=== PATIENT | female | born 1935 | race Caucasian/White ===

== ENCOUNTER 2023-01-15 11:09 | Inpatient (IN) | payer OTHER ==
[~2023-01-15] VITALS: Ht 154.9 cm; Wt 55.6 kg
[2023-01-15 11:55] LABS: Urine Bacteria FEW /hpf (None Seen); Urine Blood Negative /uL (Negative); Urine Mucus FEW (None Seen); Urine Specific Gravity 1.014 (1.001-1.035); Urine WBC 3 /hpf (0 - 5)
[2023-01-15 12:03] LABS: Basophils # (auto) 0.1 10 ^3/uL (0-0.2); Basophils % (auto) 0.8 % (0.0-2.0); Eosinophils # (auto) 0.2 10 ^3/uL (0-0.8); Eosinophils % (auto) 2.3 % (0.0-7.0); Hematocrit 46.4 % (36.0-46.0); Hemoglobin 15.1 g/dL (12.2-16.2); Lymphocytes # (auto) 2.1 10 ^3/uL (0.4-5.4); Lymphocytes % (auto) 26.6 % (10.0-50.0); Mean Corpuscular Hemoglobin 30.3 pg (28.0-32.0); Mean Corpuscular Hgb Conc. 32.5 g/dL (32.0-36.0); Mean Corpuscular Volume 93.1 fL (80.0-100.0); Monocytes # (auto) 0.8 10 ^3/uL (0-1.3); Monocytes % (auto) 10.6 % (0.0-12.0); Neutrophils # (auto) 4.7 10 ^3/uL (1.6-8.6); Neutrophils % (auto) 59.7 % (37.0-80.0); Nucleated Red Blood Cells % 0.1 %; Red Blood Cells 4.99 10^6/uL (4.0-5.20); Red Cell Distribution Width 15.3 % (11.8-14.3); White Blood Cell 7.8 10^3/uL (4.4-10.8)
[2023-01-15 12:38] LABS: Albumin 3.7 g/dL (3.4-5.0); Potassium 4.6 mmol/L (3.5-5.1)
[2023-01-15 12:41] LABS: BUN/Creatinine Ratio 20.4 (10.0-20.0); Bilirubin, Total 0.7 mg/dL (0.2-1.0); Total Protein 6.5 g/dL (6.4-8.2)
[2023-01-15] MEDS ORDERED: ASPirin 325 MG TAB PO ONE (13:15)
[2023-01-15 13:32] VITALS: PULSE 118; RESP 12; O2SAT 100
[2023-01-15] MEDS ORDERED: MORPHINE SULFATE INJ 2 MG/ml SYRG IV PRN ×2 (14:15)
[2023-01-15] MEDS ORDERED: NITROGLYCERIN 0.4 MG SL TAB SL PRN (14:15)
[2023-01-15] MEDS ORDERED: DOCUSATE SOD 100 MG CAP PO PRN (14:15)
[2023-01-15] MEDS ORDERED: HEPARIN DRIP/D5W 100UNITS/ML 250 ML IV SCH (14:15)
[2023-01-15] MEDS ORDERED: HEPARIN SODIUM (PORCINE) 5000 UNITS/ML 1ML VIAL IV ONE (14:15)
[2023-01-15] MEDS ORDERED: HYDROcodone-ACET 5/325MG TAB PO PRN (14:15)
[2023-01-15] MEDS ORDERED: ACETAMINOPHEN 325 MG TAB PO PRN (14:15)
[2023-01-15] MEDS ORDERED: METO-289 PO (14:42)
[2023-01-15] MEDS ORDERED: AMIO200T13 PO (14:42)
[2023-01-15 15:01] LABS: Basophils # (auto) 0 10 ^3/uL (0-0.2); Basophils % (auto) 0.7 % (0.0-2.0); Eosinophils # (auto) 0.1 10 ^3/uL (0-0.8); Eosinophils % (auto) 1.9 % (0.0-7.0); Hematocrit 43.9 % (36.0-46.0); Hemoglobin 14.5 g/dL (12.2-16.2); Lymphocytes # (auto) 2.5 10 ^3/uL (0.4-5.4); Lymphocytes % (auto) 34.7 % (10.0-50.0); Mean Corpuscular Hemoglobin 30.4 pg (28.0-32.0); Mean Corpuscular Volume 92.1 fL (80.0-100.0); Monocytes # (auto) 0.7 10 ^3/uL (0-1.3); Neutrophils # (auto) 3.7 10 ^3/uL (1.6-8.6); Neutrophils % (auto) 52.7 % (37.0-80.0); Nucleated Red Blood Cells % 0.1 %; Red Blood Cells 4.77 10^6/uL (4.0-5.20); Red Cell Distribution Width 15.3 % (11.8-14.3); White Blood Cell 7.1 10^3/uL (4.4-10.8)
[2023-01-15 15:30] LABS: INR 1.15 (0.9-1.15)
[2023-01-15 15:31] LABS: Cholesterol 209 mg/dL (< 200); HDL Cholesterol 49 mg/dL (40-59); LDL Cholesterol 135 mg/dL (< 100); Triglycerides 162 mg/dL (< 150)
[2023-01-15 15:37] LABS: Partial Thromboplastin Time > 139.0 SEC (24.5-34.5)
[2023-01-15] MEDS ORDERED: FUROSEMIDE 20 MG/2 ML VIAL IV ONE (16:30)
[2023-01-15 19:22] VITALS: PULSE 101; RESP 18; O2SAT 100
[2023-01-15] MEDS: SODIUM CHLOR 0.9% PF (SALINE LOCK) 10ML VIAL/SYR IV SCH (21:44)
[2023-01-15] MEDS: APIXABAN 5 MG TAB PO SCH ×2 (21:45→22:00)
[2023-01-15] MEDS: ATORVASTATIN 20 MG TAB PO SCH (21:45)
[2023-01-16 05:33] LABS: Basophils # (auto) 0 10 ^3/uL (0-0.2); Basophils % (auto) 0.6 % (0.0-2.0); Eosinophils # (auto) 0.2 10 ^3/uL (0-0.8); Eosinophils % (auto) 3.1 % (0.0-7.0); Hematocrit 42.3 % (36.0-46.0); Hemoglobin 14.4 g/dL (12.2-16.2); Lymphocytes # (auto) 2.1 10 ^3/uL (0.4-5.4); Lymphocytes % (auto) 34.8 % (10.0-50.0); Mean Corpuscular Hemoglobin 31.2 pg (28.0-32.0); Mean Corpuscular Hgb Conc. 33.9 g/dL (32.0-36.0); Monocytes # (auto) 0.7 10 ^3/uL (0-1.3); Monocytes % (auto) 10.8 % (0.0-12.0); Neutrophils # (auto) 3.1 10 ^3/uL (1.6-8.6); Neutrophils % (auto) 50.7 % (37.0-80.0); Nucleated Red Blood Cells % 0.2 %; Red Cell Distribution Width 15.1 % (11.8-14.3); White Blood Cell 6.1 10^3/uL (4.4-10.8)
[2023-01-16 05:51] LABS: Potassium 4.4 mmol/L (3.5-5.1)
[2023-01-16 06:00] LABS: Albumin 3.3 g/dL (3.4-5.0); BUN/Creatinine Ratio 21.4 (10.0-20.0); Calcium 8.7 mg/dL (8.5-10.1); Total Protein 5.7 g/dL (6.4-8.2)
[2023-01-16] MEDS: SODIUM CHLOR 0.9% PF (SALINE LOCK) 10ML VIAL/SYR IV SCH ×3 (06:01→22:04)
[2023-01-16] MEDS: EMPAGLIFLOZIN 10 MG TAB PO SCH (07:05)
[2023-01-16 07:40] VITALS: PULSE 113; RESP 11; O2SAT 98
[2023-01-16] MEDS ORDERED: ASPirin 81 mg TAB PO SCH (10:00)
[2023-01-16] MEDS ORDERED: FUROSEMIDE 20 MG/2 ML VIAL IV SCH (10:00)
[2023-01-16] MEDS: METOPROLOL SUCCINATE XL 50 MG TAB PO SCH (10:00)
[2023-01-16] MEDS: APIXABAN 5 MG TAB PO SCH ×2 (10:24→21:18)
[2023-01-16] MEDS: AMIODARONE HCL 200 MG TAB PO SCH (10:24)
[2023-01-16] MEDS: POTASSIUM CHL 10 Meq TABLET PO SCH (10:24)
[2023-01-16] MEDS ORDERED: LEVOTHYROXINE SODIUM 50 MCG TAB PO ONE (14:00)
[2023-01-16] MEDS ORDERED: MORPHINE SULFATE INJ 2 MG/ml SYRG IV PRN (15:15)
[2023-01-16] MEDS ORDERED: PANTOPRAZOLE 40 MG TAB PO ONE (15:15)
[2023-01-16 19:00] VITALS: BP 123/66; PULSE 110; RESP 16; TEMP 98
[2023-01-16 20:00] VITALS: BP 123/66; PULSE 110; PULSE 85; RESP 16; TEMP 98; O2SAT 90
[2023-01-16] MEDS: ATORVASTATIN 20 MG TAB PO SCH (21:15)
[2023-01-16] MEDS ORDERED: LEVO50TA7 PO (21:52)
[2023-01-16] MEDS ORDERED: APIX2.5T PO (21:52)
[2023-01-16] MEDS ORDERED: FURO20TA3 PO (21:52)
[2023-01-16 21:53] VITALS: BP 123/66; PULSE 110; RESP 16; TEMP 98; O2SAT 94
[2023-01-17] VITALS (7 sets, daily range): BP systolic 86–107; BP diastolic 47–66; PULSE 50–143; RESP 14–18; TEMP 36.7; O2SAT 92–97
[2023-01-17] MEDS: EMPAGLIFLOZIN 10 MG TAB PO SCH (06:20)
[2023-01-17] MEDS: LEVOTHYROXINE SODIUM 50 MCG TAB PO SCH (06:20)
[2023-01-17] MEDS: SODIUM CHLOR 0.9% PF (SALINE LOCK) 10ML VIAL/SYR IV SCH ×3 (06:23→21:15)
[2023-01-17 07:08] LABS: BUN/Creatinine Ratio 25.3 (10.0-20.0); Calcium 8.5 mg/dL (8.5-10.1); Potassium 4.2 mmol/L (3.5-5.1)
[2023-01-17] MEDS: FUROSEMIDE 20 MG TAB PO SCH (10:00)
[2023-01-17] MEDS: METOPROLOL SUCCINATE XL 50 MG TAB PO SCH (10:00)
[2023-01-17] MEDS: CLOPIDOGREL BISULFATE 75 MG TAB PO SCH (10:09)
[2023-01-17] MEDS: AMIODARONE HCL 200 MG TAB PO SCH (10:09)
[2023-01-17] MEDS: PANTOPRAZOLE 40 MG TAB PO SCH (10:09)
[2023-01-17] MEDS: APIXABAN 5 MG TAB PO SCH ×2 (10:10→21:13)
[2023-01-17] MEDS: POTASSIUM CHL 10 Meq TABLET PO SCH (10:11)
[2023-01-17] MEDS: LACTULOSE 20Gm/30ML SOLN PO SCH (10:11)
[2023-01-17] MEDS: ATORVASTATIN 20 MG TAB PO SCH (21:14)
[2023-01-18 05:00] VITALS: BP 104/70; PULSE 65; RESP 16; TEMP 97.6; O2SAT 94
[2023-01-18] MEDS: LEVOTHYROXINE SODIUM 50 MCG TAB PO SCH (06:15)
[2023-01-18] MEDS: EMPAGLIFLOZIN 10 MG TAB PO SCH (06:15)
[2023-01-18] MEDS: SODIUM CHLOR 0.9% PF (SALINE LOCK) 10ML VIAL/SYR IV SCH (06:17)
[2023-01-18 07:02] LABS: Calcium 8.6 mg/dL (8.5-10.1); Potassium 4.3 mmol/L (3.5-5.1)
[2023-01-18 07:56] VITALS: BP 107/65; TEMP 36.7
[2023-01-18 08:00] VITALS: BP 107/60; PULSE 124; PULSE 50; PULSE 96; RESP 18; RESP 21; TEMP 97.5; O2SAT 92; O2SAT 98
[2023-01-18] MEDS: AMIODARONE HCL 200 MG TAB PO SCH (09:46)
[2023-01-18] MEDS: CLOPIDOGREL BISULFATE 75 MG TAB PO SCH (09:46)
[2023-01-18] MEDS: APIXABAN 5 MG TAB PO SCH (09:46)
[2023-01-18] MEDS: PANTOPRAZOLE 40 MG TAB PO SCH (09:46)
[2023-01-18] MEDS: POTASSIUM CHL 10 Meq TABLET PO SCH (09:46)
[2023-01-18] MEDS: FUROSEMIDE 20 MG TAB PO SCH (09:47)
[2023-01-18] MEDS: LACTULOSE 20Gm/30ML SOLN PO SCH (09:49)
[2023-01-18] MEDS ORDERED: IVABRADINE 5 MG TAB PO SCH (10:00)
[2023-01-18] MEDS ORDERED: METOPROLOL SUCCINATE XL 50 MG TAB PO SCH (10:00)
[2023-01-18] MEDS ORDERED: AMIO200T33 PO (10:19)
[2023-01-18] MEDS ORDERED: ATOR20TA50 PO (10:19)
[2023-01-18] MEDS ORDERED: CLOP75TA70 PO (10:19)
[2023-01-18] MEDS ORDERED: POTA-211 PO (10:19)
[2023-01-18] MEDS ORDERED: PANT40T PO (10:19)
[2023-01-18] MEDS ORDERED: EMPA1TAB PO (10:19)
[2023-01-18] MEDS ORDERED: FUR20T PO (10:19)
[2023-01-18] MEDS ORDERED: LEV50T PO (10:19)
[2023-01-18 12:00] VITALS: BP 123/83; PULSE 109; RESP 21; TEMP 97.5; O2SAT 98
[2023-01-18 12:27] VITALS: BP 107/60; PULSE 96; TEMP 36.4
== END 2023-01-18 14:01 | disposition home or self-care (01) | DRG 280 ==
LOC: ER 11:09 → TELE 14:29 → TELE-WESTW 01-16 13:32
PROVIDERS: ADMIT Internal Medicine; ATTEND Student in an Organized Health Care Education/Training Program
DX: I21.4 Non-ST elevation (NSTEMI) myocardial infarction (principal); I50.23 Acute on chronic systolic (congestive) heart failure; E78.5 Hyperlipidemia, unspecified; I48.91 Unspecified atrial fibrillation; I25.10 Atherosclerotic heart disease of native coronary artery without angina pectoris; K59.00 Constipation, unspecified; I24.9 Acute ischemic heart disease, unspecified; E03.9 Hypothyroidism, unspecified; N81.10 Cystocele, unspecified; Z98.61 Coronary angioplasty status
CPT/HCPCS: 36415; 71045; 80048; 80053; 80061; 81001; 83036; 83735; 83880; 84443; 84484; 85025; 85610; 85730; 93005; 93306; 96365; 96376; 97110; 97116; 97163; 97530; 99291; G0378

== ENCOUNTER 2023-04-18 17:02 | Inpatient (IN) | payer OTHER ==
[~2023-04-18] VITALS: Ht 154.9 cm; Wt 55.1 kg
[~2023-04-18 17:02] MED LIST: AMIO200T13 PO; AMIO200T33 PO; APIX2.5T PO; ATOR20TA50 PO; CLOP75TA70 PO; EMPA1TAB PO; FUR20T PO; FURO20TA3 PO; LEV50T PO; LEVO50TA7 PO; METO-289 PO; PANT40T PO; POTA-211 PO
[2023-04-18 17:37] LABS: Basophils # (auto) 0 10 ^3/uL (0-0.2); Basophils % (auto) 0.6 % (0.0-2.0); Eosinophils # (auto) 0.1 10 ^3/uL (0-0.8); Eosinophils % (auto) 1.3 % (0.0-7.0); Hematocrit 46.3 % (36.0-46.0); Hemoglobin 15.1 g/dL (12.2-16.2); Lymphocytes # (auto) 2.7 10 ^3/uL (0.4-5.4); Lymphocytes % (auto) 33.7 % (10.0-50.0); Mean Corpuscular Hemoglobin 30.7 pg (28.0-32.0); Mean Corpuscular Hgb Conc. 32.7 g/dL (32.0-36.0); Mean Corpuscular Volume 93.9 fL (80.0-100.0); Monocytes # (auto) 0.7 10 ^3/uL (0-1.3); Monocytes % (auto) 8.9 % (0.0-12.0); Neutrophils # (auto) 4.4 10 ^3/uL (1.6-8.6); Neutrophils % (auto) 55.5 % (37.0-80.0); Nucleated Red Blood Cells % 0.1 %; Red Blood Cells 4.93 10^6/uL (4.0-5.20); Red Cell Distribution Width 14.9 % (11.8-14.3); White Blood Cell 7.9 10^3/uL (4.4-10.8)
[2023-04-18 17:56] VITALS: PULSE 113; RESP 18; O2SAT 98
[2023-04-18 17:56] LABS: Alanine Aminotransferase 14 U/L (7-40); Albumin 4.4 g/dL (3.2-4.8); Alkaline Phosphatase 104 U/L (46-116); Anion Gap 7 (5-15); Aspartate Aminotransferase 19 U/L (13-40); BUN/Creatinine Ratio 29.3 (10.0-20.0); Blood Urea Nitrogen 24 mg/dL (9-23); Calcium 9.5 mg/dL (8.7-10.4); Carbon Dioxide 23 mmol/L (20-30); Chloride 110 mmol/L (98-107); Glucose 106 mg/dL (74-106); Potassium 4.5 mmol/L (3.5-5.1); Sodium 140 mmol/L (136-145)
[2023-04-18 17:57] LABS: Bilirubin, Total 0.7 mg/dL (0.2-1.0); Total Protein 6.5 g/dL (5.7-8.2)
[2023-04-18] MEDS ORDERED: SODIUM CHLORIDE 0.9% 1,000 ML IV ONE (19:00)
[2023-04-18] MEDS ORDERED: SODIUM CHLORIDE 0.9% 1,000 ML IVB ONE (19:00)
[2023-04-18 19:30] VITALS: PULSE 97; RESP 14; O2SAT 98
[2023-04-18 19:57] LABS: INR 1.13 (0.9-1.15); Partial Thromboplastin Time 30.2 SEC (24.5-34.5); Prothrombin Time 11.8 sec (9.3-11.8)
[2023-04-18] MEDS ORDERED: IOHEXOL 350 MG/ML 100ML IJ ONE (21:14)
[2023-04-18] MEDS ORDERED: FUROSEMIDE 20 MG/2 ML VIAL IV ONE (21:15)
[2023-04-19] MEDS ORDERED: DOCUSATE SOD 100 MG CAP PO PRN (04:00)
[2023-04-19] MEDS ORDERED: NITROGLYCERIN 0.4 MG SL TAB SL PRN (04:00)
[2023-04-19] MEDS ORDERED: ACETAMINOPHEN 325 MG TAB PO PRN (04:00)
[2023-04-19] MEDS ORDERED: MORPHINE SULFATE INJ 2 MG/ml SYRG IV PRN (04:00)
[2023-04-19] MEDS ORDERED: ONDANSETRON HCL 4 MG/2 ML VIAL IV PRN (04:00)
[2023-04-19] MEDS ORDERED: DEXTROSE (50%) 50ML SYRG IV PRN (04:15)
[2023-04-19 05:26] LABS: Basophils # (auto) 0.1 10 ^3/uL (0-0.2); Basophils % (auto) 0.6 % (0.0-2.0); Eosinophils # (auto) 0.1 10 ^3/uL (0-0.8); Eosinophils % (auto) 1.5 % (0.0-7.0); Hematocrit 44.1 % (36.0-46.0); Hemoglobin 14.7 g/dL (12.2-16.2); Lymphocytes # (auto) 2.1 10 ^3/uL (0.4-5.4); Lymphocytes % (auto) 23.5 % (10.0-50.0); Mean Corpuscular Hemoglobin 30.8 pg (28.0-32.0); Mean Corpuscular Hgb Conc. 33.3 g/dL (32.0-36.0); Mean Corpuscular Volume 92.7 fL (80.0-100.0); Monocytes % (auto) 10.6 % (0.0-12.0); Neutrophils # (auto) 5.8 10 ^3/uL (1.6-8.6); Neutrophils % (auto) 63.8 % (37.0-80.0); Nucleated Red Blood Cells % 0.1 %; Red Blood Cells 4.76 10^6/uL (4.0-5.20); Red Cell Distribution Width 14.8 % (11.8-14.3)
[2023-04-19 05:41] LABS: Calcium 9.1 mg/dL (8.7-10.4); Chloride 109 mmol/L (98-107); Potassium 3.6 mmol/L (3.5-5.1); Sodium 142 mmol/L (136-145)
[2023-04-19 05:42] LABS: Anion Gap 9 (5-15); Carbon Dioxide 24 mmol/L (20-30)
[2023-04-19 05:47] LABS: BUN/Creatinine Ratio 18.7 (10.0-20.0); Blood Urea Nitrogen 14 mg/dL (9-23); Glucose 85 mg/dL (74-106)
[2023-04-19] MEDS ORDERED: POTASSIUM CHL 20 Meq TABLET PO ONE (06:30)
[2023-04-19] MEDS: ACCU-CHEK COMFORT CURVE STRIP VI SCH ×4 (06:57→22:11)
[2023-04-19] MEDS: InsuLIN REG 1unit/0.01ml Soln (100units/ml) SC SCH ×4 (06:57→22:00)
[2023-04-19] MEDS: APIXABAN 2.5 MG TAB PO SCH ×2 (09:24→22:05)
[2023-04-19] MEDS ORDERED: AMIODARONE HCL 200 MG TAB PO SCH (10:00)
[2023-04-19 16:56] VITALS: PULSE 63; RESP 14; O2SAT 92
[2023-04-19] MEDS ORDERED: FUROSEMIDE 20 MG TAB PO SCH (17:00)
[2023-04-20 04:45] LABS: Basophils # (auto) 0 10 ^3/uL (0-0.2); Basophils % (auto) 0.4 % (0.0-2.0); Eosinophils # (auto) 0.2 10 ^3/uL (0-0.8); Eosinophils % (auto) 2.5 % (0.0-7.0); Hematocrit 44.3 % (36.0-46.0); Hemoglobin 14.6 g/dL (12.2-16.2); Lymphocytes # (auto) 2.6 10 ^3/uL (0.4-5.4); Lymphocytes % (auto) 40.6 % (10.0-50.0); Mean Corpuscular Hemoglobin 30.7 pg (28.0-32.0); Mean Corpuscular Hgb Conc. 32.9 g/dL (32.0-36.0); Mean Corpuscular Volume 93.4 fL (80.0-100.0); Monocytes # (auto) 0.7 10 ^3/uL (0-1.3); Monocytes % (auto) 11.5 % (0.0-12.0); Neutrophils # (auto) 2.9 10 ^3/uL (1.6-8.6); Red Blood Cells 4.74 10^6/uL (4.0-5.20); White Blood Cell 6.4 10^3/uL (4.4-10.8)
[2023-04-20 04:47] LABS: Chloride 110 mmol/L (98-107); Potassium 4.1 mmol/L (3.5-5.1); Sodium 141 mmol/L (136-145)
[2023-04-20 04:48] LABS: Anion Gap 7 (5-15); Calcium 8.9 mg/dL (8.5-10.1); Carbon Dioxide 24 mmol/L (20-30)
[2023-04-20 04:53] LABS: BUN/Creatinine Ratio 20.9 (10.0-20.0); Blood Urea Nitrogen 19 mg/dL (9-23); Glucose 95 mg/dL (74-106)
[2023-04-20] MEDS: InsuLIN REG 1unit/0.01ml Soln (100units/ml) SC SCH (07:00)
[2023-04-20] MEDS: ACCU-CHEK COMFORT CURVE STRIP VI SCH (07:20)
[2023-04-20 09:30] VITALS: BP 122/74; PULSE 77; RESP 18; TEMP 97; O2SAT 96
== END 2023-04-20 09:36 | disposition home health service (06) | DRG 310 ==
LOC: ER 17:02 → TELE 04-19 04:03
PROVIDERS: ADMIT Nurse Practitioner Family; ATTEND Nurse Practitioner Family
DX: I48.20 Chronic atrial fibrillation, unspecified (principal); I25.5 Ischemic cardiomyopathy; S00.93XA Contusion of unspecified part of head, initial encounter; R09.89 Other specified symptoms and signs involving the circulatory and respiratory systems; I25.10 Atherosclerotic heart disease of native coronary artery without angina pectoris; I11.0 Hypertensive heart disease with heart failure; I50.9 Heart failure, unspecified; W01.0XXA Fall on same level from slipping, tripping and stumbling without subsequent striking against object, initial encounter; Z95.5 Presence of coronary angioplasty implant and graft; Z91.148 Patient's other noncompliance with medication regimen for other reason; H54.8 Legal blindness, as defined in USA; Z79.01 Long term (current) use of anticoagulants; Z82.3 Family history of stroke; Z82.49 Family history of ischemic heart disease and other diseases of the circulatory system; Z88.2 Allergy status to sulfonamides; Y93.89 Activity, other specified; Y92.098 Other place in other non-institutional residence as the place of occurrence of the external cause; Y99.8 Other external cause status
CPT/HCPCS: 36415; 70450; 71045; 71275; 80048; 80053; 82962; 83735; 83880; 84443; 84484; 85025; 85379; 85610; 85730; 93005; 93306; 93970; 97163; G0378

== ENCOUNTER 2023-05-18 12:33 | Inpatient (IN) | payer OTHER ==
[~2023-05-18] VITALS: Ht 157.5 cm; Wt 60.3 kg
[2023-05-18] MEDS ORDERED: SODIUM CHLORIDE 0.9% 1,000 ML IV ONE (13:00)
[2023-05-18 14:17] LABS: Basophils # (auto) 0 10 ^3/uL (0-0.2); Basophils % (auto) 0.2 % (0.0-2.0); Eosinophils # (auto) 0 10 ^3/uL (0-0.8); Eosinophils % (auto) 0.2 % (0.0-7.0); Hematocrit 41.7 % (36.0-46.0); Hemoglobin 13.5 g/dL (12.2-16.2); Lymphocytes # (auto) 0.7 10 ^3/uL (0.4-5.4); Lymphocytes % (auto) 9.4 % (10.0-50.0); Mean Corpuscular Hemoglobin 30.5 pg (28.0-32.0); Mean Corpuscular Hgb Conc. 32.3 g/dL (32.0-36.0); Mean Corpuscular Volume 94.3 fL (80.0-100.0); Monocytes # (auto) 0.5 10 ^3/uL (0-1.3); Monocytes % (auto) 6.4 % (0.0-12.0); Neutrophils # (auto) 6.6 10 ^3/uL (1.6-8.6); Neutrophils % (auto) 83.8 % (37.0-80.0); Nucleated Red Blood Cells % 0.1 %; Red Blood Cells 4.42 10^6/uL (4.0-5.20); Red Cell Distribution Width 15.4 % (11.8-14.3); White Blood Cell 7.8 10^3/uL (4.4-10.8)
[2023-05-18] MEDS ORDERED: dilTIAZem 25 MG/5 ML VIAL IV ONE (14:30)
[2023-05-18 14:38] LABS: Alanine Aminotransferase 84 U/L (7-40); Albumin 3.4 g/dL (3.2-4.8); Alkaline Phosphatase 64 U/L (46-116); Anion Gap 10 (5-15); Aspartate Aminotransferase 130 U/L (13-40); BUN/Creatinine Ratio 18.8 (10.0-20.0); Bilirubin, Total 0.9 mg/dL (0.2-1.0); Blood Urea Nitrogen 16 mg/dL (9-23); Calcium 8.4 mg/dL (8.5-10.1); Carbon Dioxide 18 mmol/L (20-30); Chloride 107 mmol/L (98-107); Glucose 118 mg/dL (74-106); Potassium 4.4 mmol/L (3.5-5.1); Sodium 135 mmol/L (136-145); Total Protein 5.4 g/dL (5.7-8.2)
[2023-05-18 14:42] LABS: Lactic Acid w/Reflex 2.1 mmol/L (0.4-2.0)
[2023-05-18] MEDS ORDERED: ENOXAPARIN SOD 60 MG/0.6 ML SYRINGE SC ONE (15:15)
[2023-05-18 15:54] VITALS: O2SAT 94
[2023-05-18 16:19] LABS: COVID19 ANTIGEN SOFIA FIA NEGATIVE (NEGATIVE)
[2023-05-18] MEDS ORDERED: FUROSEMIDE 40 MG/4 ML VIAL IV ONE (16:45)
[2023-05-18] MEDS ORDERED: HYDROcodone-ACET 5/325MG TAB PO PRN (18:00)
[2023-05-18] MEDS ORDERED: MORPHINE SULFATE INJ 2 MG/ml SYRG IV PRN (18:00)
[2023-05-18] MEDS ORDERED: ONDANSETRON HCL 4 MG/2 ML VIAL IV PRN (18:00)
[2023-05-18] MEDS ORDERED: NITROGLYCERIN 0.4 MG SL TAB SL PRN (18:00)
[2023-05-18] MEDS ORDERED: dilTIAZem 25 MG/5 ML VIAL IV PRN (18:00)
[2023-05-18] MEDS ORDERED: DEXTROSE (50%) 50ML SYRG IV PRN (18:15)
[2023-05-18 19:40] VITALS: PULSE 110; RESP 24; O2SAT 98
[2023-05-18] MEDS: AMIODARONE HCL 200 MG TAB PO SCH (21:32)
[2023-05-18] MEDS: APIXABAN 2.5 MG TAB PO SCH (21:34)
[2023-05-18] MEDS: InsuLIN REG 1unit/0.01ml Soln (100units/ml) SC SCH (22:00)
[2023-05-18] MEDS: ACCU-CHEK COMFORT CURVE STRIP VI SCH (22:15)
[2023-05-18] MEDS ORDERED: CARVEDILOL 3.125 MG TAB PO ONE (22:15)
[2023-05-19] MEDS ORDERED: SODIUM CHLORIDE 0.9% 500 ML IV ONE (02:45)
[2023-05-19 05:55] LABS: Anion Gap 9 (5-15); Carbon Dioxide 19 mmol/L (20-30); Chloride 109 mmol/L (98-107); Potassium 4.3 mmol/L (3.5-5.1); Sodium 137 mmol/L (136-145)
[2023-05-19 05:57] LABS: Calcium 7.9 mg/dL (8.7-10.4)
[2023-05-19 06:01] LABS: BUN/Creatinine Ratio 22.6 (10.0-20.0); Blood Urea Nitrogen 19 mg/dL (9-23); Glucose 117 mg/dL (74-106)
[2023-05-19 06:02] LABS: Magnesium 2.1 mg/dL (1.6-2.6)
[2023-05-19 07:52] VITALS: PULSE 111; RESP 27; O2SAT 95
[2023-05-19 07:55] LABS: INR 1.38 (0.9-1.15); Partial Thromboplastin Time 37.3 SEC (24.5-34.5); Prothrombin Time 14.2 sec (9.3-11.8)
[2023-05-19] MEDS: InsuLIN REG 1unit/0.01ml Soln (100units/ml) SC SCH ×4 (08:21→22:00)
[2023-05-19] MEDS: ACCU-CHEK COMFORT CURVE STRIP VI SCH ×4 (08:22→22:20)
[2023-05-19] MEDS: LEVOTHYROXINE SODIUM 50 MCG TAB PO SCH (08:24)
[2023-05-19] MEDS: CARVEDILOL 3.125 MG TAB PO SCH ×2 (10:00→22:00)
[2023-05-19] MEDS ORDERED: METOPROLOL SUCCINATE XL 50 MG TAB PO SCH (10:00)
[2023-05-19] MEDS: PANTOPRAZOLE 40 MG TAB PO SCH (10:06)
[2023-05-19] MEDS: APIXABAN 2.5 MG TAB PO SCH ×2 (10:06→22:20)
[2023-05-19] MEDS: AMIODARONE HCL 200 MG TAB PO SCH ×2 (10:06→22:20)
[2023-05-19] MEDS: POTASSIUM CHL 10 Meq TABLET PO SCH (10:07)
[2023-05-19 11:02] VITALS: BP 102/67; PULSE 111; PULSE 115; RESP 20; O2SAT 95
[2023-05-19] MEDS: FUROSEMIDE 20 MG TAB PO SCH (12:32)
[2023-05-19] MEDS ORDERED: DIGOXIN (250MCG/ML) 2 ML AMPULE IV ONE (16:45)
[2023-05-19 17:30] VITALS: BP 104/79; PULSE 118
[2023-05-19 20:00] VITALS: BP 98/62; PULSE 108; PULSE 97; RESP 18; RESP 24; TEMP 97.4
[2023-05-19 22:00] VITALS: BP 111/59; PULSE 70; RESP 24; TEMP 97.4; O2SAT 96
[2023-05-20] VITALS (8 sets, daily range): BP systolic 94–124; BP diastolic 54–80; PULSE 62–108; RESP 16–20; TEMP 97.6–99.5; O2SAT 95–98
[2023-05-20] MEDS: ACCU-CHEK COMFORT CURVE STRIP VI SCH ×4 (06:10→21:06)
[2023-05-20] MEDS: InsuLIN REG 1unit/0.01ml Soln (100units/ml) SC SCH ×4 (06:11→20:57)
[2023-05-20] MEDS: LEVOTHYROXINE SODIUM 50 MCG TAB PO SCH (06:12)
[2023-05-20 06:19] LABS: Chloride 107 mmol/L (98-107); Potassium 4.4 mmol/L (3.5-5.1); Sodium 134 mmol/L (136-145)
[2023-05-20 06:20] LABS: Anion Gap 8 (5-15); Carbon Dioxide 19 mmol/L (20-30)
[2023-05-20 06:25] LABS: BUN/Creatinine Ratio 24.7 (10.0-20.0); Blood Urea Nitrogen 19 mg/dL (9-23); Glucose 98 mg/dL (74-106)
[2023-05-20 06:26] LABS: Magnesium 2.1 mg/dL (1.6-2.6)
[2023-05-20] MEDS: POTASSIUM CHL 10 Meq TABLET PO SCH (09:32)
[2023-05-20] MEDS: APIXABAN 2.5 MG TAB PO SCH ×2 (09:32→21:05)
[2023-05-20] MEDS: PANTOPRAZOLE 40 MG TAB PO SCH (09:32)
[2023-05-20] MEDS: AMIODARONE HCL 200 MG TAB PO SCH ×2 (09:33→21:04)
[2023-05-20] MEDS: CARVEDILOL 3.125 MG TAB PO SCH (09:33)
[2023-05-20] MEDS: FUROSEMIDE 20 MG TAB PO SCH (09:33)
[2023-05-21 05:00] VITALS: BP 95/52; PULSE 65; RESP 18; TEMP 98; O2SAT 94
[2023-05-21] MEDS: InsuLIN REG 1unit/0.01ml Soln (100units/ml) SC SCH ×3 (05:28→17:00)
[2023-05-21] MEDS: ACCU-CHEK COMFORT CURVE STRIP VI SCH ×3 (05:28→17:00)
[2023-05-21 05:46] LABS: Basophils # (auto) 0.1 10 ^3/uL (0-0.2); Basophils % (auto) 0.7 % (0.0-2.0); Eosinophils # (auto) 0.3 10 ^3/uL (0-0.8); Eosinophils % (auto) 3.3 % (0.0-7.0); Hematocrit 42.4 % (36.0-46.0); Hemoglobin 13.7 g/dL (12.2-16.2); Lymphocytes # (auto) 1.4 10 ^3/uL (0.4-5.4); Lymphocytes % (auto) 16.4 % (10.0-50.0); Mean Corpuscular Hemoglobin 29.9 pg (28.0-32.0); Mean Corpuscular Hgb Conc. 32.4 g/dL (32.0-36.0); Mean Corpuscular Volume 92.4 fL (80.0-100.0); Monocytes # (auto) 0.7 10 ^3/uL (0-1.3); Monocytes % (auto) 8.2 % (0.0-12.0); Neutrophils % (auto) 71.4 % (37.0-80.0); Nucleated Red Blood Cells % 0.1 %; Red Blood Cells 4.58 10^6/uL (4.0-5.20); Red Cell Distribution Width 15.5 % (11.8-14.3); White Blood Cell 8.3 10^3/uL (4.4-10.8)
[2023-05-21 05:56] LABS: Anion Gap 6 (5-15); Carbon Dioxide 22 mmol/L (20-30); Chloride 106 mmol/L (98-107); Sodium 134 mmol/L (136-145)
[2023-05-21 05:58] LABS: Calcium 8.1 mg/dL (8.7-10.4)
[2023-05-21 06:02] LABS: Glucose 86 mg/dL (74-106)
[2023-05-21 06:03] LABS: BUN/Creatinine Ratio 20.5 (10.0-20.0); Blood Urea Nitrogen 16 mg/dL (9-23); Magnesium 2.1 mg/dL (1.6-2.6)
[2023-05-21 08:00] VITALS: PULSE 94; PULSE 95; RESP 20; O2SAT 95
[2023-05-21 09:00] VITALS: BP 93/54; PULSE 95; RESP 20; TEMP 97.9; O2SAT 95
[2023-05-21] MEDS ORDERED: cefTRIAXone 1GM/50ML D5W 50 ML IV SCH (09:00)
[2023-05-21 10:53] LABS: Hepatitis B Surface Antigen Negative (Negative)
[2023-05-21] MEDS: PANTOPRAZOLE 40 MG TAB PO SCH (10:54)
[2023-05-21] MEDS: APIXABAN 2.5 MG TAB PO SCH (10:54)
[2023-05-21] MEDS: AMIODARONE HCL 200 MG TAB PO SCH (10:54)
[2023-05-21] MEDS: POTASSIUM CHL 10 Meq TABLET PO SCH (10:55)
[2023-05-21] MEDS: FUROSEMIDE 20 MG TAB PO SCH (11:05)
[2023-05-21 11:15] LABS: Hepatitis C Antibody Negative (Negative)
[2023-05-21] MEDS ORDERED: AMIO200T13 PO (12:08)
[2023-05-21] MEDS ORDERED: APIX2.5T PO (12:08)
[2023-05-21] MEDS: LEVOTHYROXINE SODIUM 50 MCG TAB PO SCH (12:49)
[2023-05-21 13:09] VITALS: BP 93/58; PULSE 93; RESP 22; TEMP 97.8; O2SAT 97
[2023-05-21 16:13] LABS: COVID19 ANTIGEN SOFIA FIA NEGATIVE (NEGATIVE)
[2023-05-21 17:12] VITALS: BP 87/48; PULSE 102; RESP 22; TEMP 98.2; O2SAT 96
== END 2023-05-21 18:26 | DRG 309 ==
LOC: EDBD 12:33 → ER 12:33 → TELE 18:09 → TELE-EAST 05-19 10:46
PROVIDERS: ADMIT Hospitalist; ATTEND Hospitalist
DX: I48.20 Chronic atrial fibrillation, unspecified (principal); I50.22 Chronic systolic (congestive) heart failure; I48.91 Unspecified atrial fibrillation; I42.9 Cardiomyopathy, unspecified; R09.89 Other specified symptoms and signs involving the circulatory and respiratory systems; E11.9 Type 2 diabetes mellitus without complications; I11.0 Hypertensive heart disease with heart failure; I25.10 Atherosclerotic heart disease of native coronary artery without angina pectoris; Z20.822 Contact with and (suspected) exposure to COVID-19; Z60.2 Problems related to living alone; Z82.49 Family history of ischemic heart disease and other diseases of the circulatory system; Z90.710 Acquired absence of both cervix and uterus; Z86.16 Personal history of COVID-19; Z88.2 Allergy status to sulfonamides
CPT/HCPCS: 36415; 70450; 71045; 80048; 80053; 82962; 83605; 83735; 83880; 84439; 84443; 84484; 85025; 85610; 85730; 86803; 87040; 87081; 87340; 87426; 93005; 97110; 97116; 97163; 97530; 99291; G0378; J0696; J1815

== ENCOUNTER 2024-06-21 14:14 | Inpatient (IN) | payer OTHER, MEDICAID ==
[~2024-06-21] VITALS: Ht 160 cm; Wt 72.1 kg
[~2024-06-21 14:14] MED LIST changes: -AMIO200T33 PO; -CLOP75TA70 PO; -FUR20T PO; -LEV50T PO; -METO-289 PO
[2024-06-21 15:05] LABS: Basophils # (auto) 0 10 ^3/uL (0-0.2); Basophils % (auto) 0.4 % (0.0-2.0); Eosinophils # (auto) 0 10 ^3/uL (0-0.8); Eosinophils % (auto) 0.3 % (0.0-7.0); Hematocrit 45.8 % (36.0-46.0); Lymphocytes # (auto) 0.9 10 ^3/uL (0.4-5.4); Lymphocytes % (auto) 11.7 % (10.0-50.0); Mean Corpuscular Hemoglobin 29.5 pg (28.0-32.0); Mean Corpuscular Hgb Conc. 32.8 g/dL (32.0-36.0); Mean Corpuscular Volume 89.8 fL (80.0-100.0); Monocytes # (auto) 1.1 10 ^3/uL (0-1.3); Monocytes % (auto) 13.6 % (0.0-12.0); Neutrophils # (auto) 5.8 10 ^3/uL (1.6-8.6); Nucleated Red Blood Cells % 0.2 %; Platelet Count (auto) 160 10^3/uL (140-450); Red Cell Distribution Width 14.5 % (11.8-14.3); White Blood Cell 7.8 10^3/uL (4.4-10.8)
[2024-06-21 15:14] LABS: Chloride 105 mmol/L (98-107); Potassium 4.8 mmol/L (3.5-5.1); Sodium 137 mmol/L (136-145)
[2024-06-21 15:15] LABS: Anion Gap 9 (5-15); Calcium 9.5 mg/dL (8.7-10.4); Carbon Dioxide 23 mmol/L (20-31)
[2024-06-21 15:19] LABS: INR 1.25 (0.9-1.15); Partial Thromboplastin Time 27.3 SEC (24.5-34.5)
[2024-06-21 15:20] LABS: BUN/Creatinine Ratio 23.5 (10.0-20.0); Blood Urea Nitrogen 28 mg/dL (9-23); Glucose 123 mg/dL (74-106)
--- NOTE | 2024-06-21 16:12 | ED.PDOC ---
SOB-HPI HPI Comments 88F with CHF and chronic pleural effusions status post pleura catheters presents with several days of worsening shortness of breath and lower extremity edema. Supervisor Grounds reports they tried to go to [place] yesterday however the wait was too long so they came back. Chief Complaint: Shortness of Breath Time Seen by MD: 15:50 Primary Care Provider: Dhruv Spicer notes: Nurses Notes, Case Loader Operator Notes, Medications, Allergies Information Source: Patient, Emergency Med Personnel Mode of Arrival: EMS Brought in by: EMS Severity: Mild Timing: Weeks Duration: Since onset Context: At Rest PE Risk Factors: None History of: CHF Prehospital treatment: 12 Lead EKG Modifying Factors: Nothing Associated Signs and Symptoms: Cough Past Medical History PAST MEDICAL HISTORY: AFIB, CHF, CKF, HTN, MS Surgical History: PTCA HOOKER UP History: No Pertinent HOOKER UP History Family History Family History: Reviewed,noncontributory to illness Social History Smoker: Non-Smoker Alcohol: Denies ETOH Use Drugs: Denies Drug Use Lives In: Home Constitutional: denies: chills, diaphoresis, fatigue, fever, malaise, sweats, weakness, others EENTM: denies: blurred vision, double vision, ear bleeding, ear discharge, ear drainage, ear pain, ear ringing, eye pain, eye redness, hearing loss, mouth pain, mouth swelling, nasal discharge, nose bleeding, nose congestion, nose pain, photophobia, tearing, throat pain, throat swelling, voice changes, others Respiratory: reports: cough, shortness of breath; denies: hemoptysis, orthopnea, SOB at rest, SOB with excertion, stridor, wheezing, others Cardiovascular: denies: chest pain, dizzy spells, diaphoresis, Dyspnea on exertion, edema, irregular heart beat, left arm pain, lightheadedness, palpitations, PND, syncope, others Gastrointestinal: denies: abdomen distended, abdominal pain, blood streaked bowels, constipated, diarrhea, dysphagia, difficulty swallowing, hematemesis, melena, nausea, poor appetite, poor fluid intake, rectal bleeding, rectal pain, vomiting, others Genitourinary: denies: abnormal vagina bleeding, burning, dyspareunia, dysuria, flank pain, frequency, hematuria, incontinence, pain, , vagina discharge, urgency, others Neurological: denies: dizziness, fainting, headache, left sided numbness, left sided weakness, numbness, paresthesia, pre-existing deficit, right sided numbness, right sided weakness, seizure, speech problems, tingling, tremors, weakness, others Musculoskeletal: denies: back pain, gout, joint pain, joint swelling, muscle pain, muscle stiffness, neck pain, others Integumetry: denies: bruises, change in color, change in hair/nails, dryness, laceration, lesions, lumps, rash, wounds, others Allergic/Immunocompromised: denies: Difficulty Healing, Frequent Infections, Hives, Itching, others Hematologic/Lymphatic: denies: anemia, blood clots, easy bleeding, easy bruising, swollen glands, others Endocrine: denies: excessive hunger, excessive sweating, excessive thirst, excessive urination, flushing, intolerance to cold, intolerance to heat, unexplained weight gain, unexplained weight loss, others Psychiatric: denies: anxiety, bipolar disorder, depression, hopeless, panic disorder, schizophrenia, sleepless, suicidal, others All Other Systems: Reviewed and Negative Physical Exam General Appearance: No Apparent Distress, Normal HEENT: Normal ENT Inspection, Pharynx Normal, TMs Normal Neck: Full Range of Motion, Non-Tender, Normal, Normal Inspection Respiratory: Chest Non-Tender, Lungs Clear, No Accessory Muscle Use, No Respiratory Distress, Normal Breath Sounds Cardiovascular: No Edema, No JVD, No Murmur, No Gallop, Normal Peripheral Pulses, Regular Rate/Rhythm Breast Exam: Deferred Gastrointestinal: No Organomegaly, Non Tender, No Pulsatile Mass, Normal Bowel Sounds, Soft Genitalia: Deferred Pelvic: Deferred Rectal: Deferred Extremities: No calf tenderness, Normal capillary refill, Normal inspection, Normal range of motion, Non-tender, No pedal edema Musculoskeletal : Apperance: Normal Neurologic: Alert, belt repairer II-XII nml as Tested, No Motor Deficits, Normal Affect, Normal Mood, No Sensory Deficits Cerebellar Function: NOT DONE Reflexes: NOT DONE Skin: Dry, Normal Color, Warm Lymphatic: No Adenopathy Was a procedure done? Was a procedure done?: No Differential Dx Differential Diagnosis: CHF, Pneumonia, URI X-Ray, Labs, Meds, VS Vital Signs Date Time Temp Pulse Resp B/P (MAP) Pulse Ox O2 Delivery O2 Flow Rate FiO2 06/21/24 14:46 98.6 142 20 136/82 (100) 96 Lab Test 06/21/24 16:07 06/21/24 14:52 Range/Units Troponin I High Sensitivity 49 *H 50 *H </=34 ng/L White Blood Count 7.8 4.4-10.8 10^3/uL Red Blood Count 5.10 4.0-5.20 10^6/uL Hemoglobin 15.0 12.2-16.2 g/dL Hematocrit 45.8 36.0-46.0 % Mean Corpuscular Volume 89.8 80.0-100.0 fL Mean Corpuscular Hemoglobin 29.5 28.0-32.0 pg Mean Corpuscular Hemoglobin Concent 32.8 32.0-36.0 g/dL Red Cell Distribution Width 14.5 H 11.8-14.3 % Platelet Count 160 140-450 10^3/uL Mean Platelet Volume 9.2 6.9-10.8 fL Neutrophils (%) (Auto) 74.0 37.0-80.0 % Lymphocytes (%) (Auto) 11.7 10.0-50.0 % Monocytes (%) (Auto) 13.6 H 0.0-12.0 % Eosinophils (%) (Auto) 0.3 0.0-7.0 % Basophils (%) (Auto) 0.4 0.0-2.0 % Neutrophils # (Auto) 5.8 1.6-8.6 10 ^3/uL Lymphocytes # (Auto) 0.9 0.4-5.4 10 ^3/uL Monocytes # (Auto) 1.1 0-1.3 10 ^3/uL Eosinophils # (Auto) 0 0-0.8 10 ^3/uL Basophils # (Auto) 0 0-0.2 10 ^3/uL Nucleated Red Blood Cells 0.2 % Prothrombin Time 13.0 H 9.3-11.8 sec Prothrombin Time INR 1.25 H 0.9-1.15 Activated Partial Thromboplast Time 27.3 24.5-34.5 SEC Sodium Level 137 136-145 mmol/L Potassium Level 4.8 3.5-5.1 mmol/L Chloride Level 105 98-107 mmol/L Carbon Dioxide Level 23 20-31 mmol/L Anion Gap 9 5-15 Blood Urea Nitrogen 28 H 9-23 mg/dL Creatinine 1.19 H 0.550-1.02 mg/dL Glomerular Filtration Rate Calc 44 >90 mL/min BUN/Creatinine Ratio 23.5 H 10.0-20.0 Serum Glucose 123 H 74-106 mg/dL Calcium Level 9.5 8.7-10.4 mg/dL B-Type Natriuretic Peptide 2601.43 0-100 pg/mL Time of 1ST Reevaluation: 16:20 Reevaluation 1ST: Unchanged Patient Education/Counseling: Diagnosis, Treatment Family Education/Counseling: No Family Present Departure 1 Departure Time of Disposition: 21:10 (Patient presented with shortness of breath that was concerning for possible STEMI, ACS, PE, Pneumonia, Muscle Strain, COPD, acute on chronic COPD exacerbation Dissection. Data: 1. I ordered and reviewed the result of at least 3 labs including a CBC, BMP, and Troponin. 2. I independently interpreted the following tests: EKG which shows sinus tachycardia and Chest X- ray which shows pleural effusions.Risk:This patient has a high risk of morbidity due to further diagnostic testing or treatment and may suffer from an acute cardiac or respiratory disorder. Workup reveals concern for acute on chronic systolic dysfunction and patient should be admitted for further workup and possible expert consultation. ) Impression: Primary Impression: Acute heart failure with reduced ejection fraction and diastolic dysfunction Additional Impression: Pleural effusion Disposition: ADMITTED INPATIENT Admit to: Med Surg Condition: Serious Critical Care Note Critical Care Time?: Yes Critical care comment: Acute shortness of breath Authorized and Performed by: Adam Damian MD Total critical care time: Approximately 41 minutes Due to a high probability of clinically significant, life threatening deterioration, the patient required my highest level of preparedness to intervene emergently and I personally spent this critical care time directly and personally managing the patient. This critical care time included obtaining a history; examining the patient; pulse oximetry; ordering and review of studies; arranging urgent treatment with development of a management plan; evaluation of patient's response to treatment; frequent reassessment; and, discussions with other providers. This critical care time was performed to assess and manage the high probability of imminent, life-threatening deterioration that could result in multi-organ failure. It was exclusive of separately billable procedures and treating other patients and teaching time. Please see my other sections and the rest of the note for further information on patient assessment and treatment. Stability Stability form required: No Heart Score Heart Score: Heart Score Response (Comments) Value History Slightly Suspicious 0 EKG Repolarization Disturb 1 Age >65 2 Risk Factors >3 or Hx ASHD 2 Troponin >3 x's Normal limit 2 Total 7 I personally scribed for ADAM DAMIAN MD ([email or web address]) on 06/21/24 at 16:12. Electronically submitted by Annalisa Paulson ([email or web address]). ADAM DAMIAN MD Jun 21, 2024 16:12
--- NOTE | 2024-06-21 17:49 | DVH ---
CLINICAL INFORMATION: 88 years old, Female; cough. TECHNIQUE: Single AP portable chest radiograph was obtained. COMPARISON: XY CHEST PORTABLE on DOS: 05/18/23, XY CHEST PORTABLE on DOS: 04/18/23, XY CHEST PORTABLE on DOS: 01/15/23 FINDINGS: Lungs: Small bilateral pleural effusions with overlying atelectasis and/or consolidation. Bilateral p leural catheters are seen, with a right pleural catheter extending toward the right lung apex left pl eural catheter extending to the left lung base. Cardiac: Mild cardiomegaly Pulmonary vasculature: Mildly prominent pulmonary vasculature. Mediastinum/khloe: Dense calcification of the aortic arch. Bones: No acute osseous abnormality identified. Other: No other significant findings. IMPRESSION: 1. Small bilateral pleural effusions with overlying atelectasis and/or consolidation, slightly increa sed compared to the prior exam. Bilateral pleural catheters as described above. 2. Cardiomegaly and mild prominence of the pulmonary vasculature suggesting a degree of pulmonary vas cular congestion in the appropriate clinical setting.
[2024-06-21 20:45] VITALS: PULSE 134; RESP 20; O2SAT 96
[2024-06-21] MEDS: FUROSEMIDE 40 MG/4 ML VIAL IV ONE (21:57)
[2024-06-22] VITALS: PULSE 126; RESP 26; O2SAT 96
[2024-06-22] MEDS ORDERED: ONDANSETRON HCL 4 MG/2 ML VIAL IV PRN (00:15)
[2024-06-22] MEDS ORDERED: HYDROcodone-ACET 5/325MG TAB PO PRN (00:15)
[2024-06-22] MEDS ORDERED: ACETAMINOPHEN 325 MG TAB PO PRN (00:15)
[2024-06-22] MEDS ORDERED: DOCUSATE SOD 100 MG CAP PO PRN (00:15)
[2024-06-22] MEDS: SODIUM CHLORIDE 0.9% 250 ML IV ONE (02:34)
[2024-06-22] MEDS ORDERED: MORPHINE SULFATE INJ 2 MG/ml SYRG IV PRN (04:45)
[2024-06-22] MEDS ORDERED: NITROGLYCERIN 0.4 MG SL TAB SL PRN (04:45)
--- NOTE | 2024-06-22 04:47 | DVHHP2 ---
History of Present Illness Reason for Visit: Acute heart failure with reduced ejection fraction and diastolic dysfu History of Present Illness The patient is a 88-year-old female with past medical history of AFib, CHF, MD, hypertension, and CKF who presented to [facility] ED with complaint of shortness of breaths. Patient reports symptoms progressively get worse with lower extremity edema, shortness of breaths when ambulating, on exertion, g etting worse that prompted this visit. Patient was seen and evaluated in the ED, laboratory data shows WBC 7.8, platelets 160, sodium 137, potassium 4.8, BUN 28, creatinine 1.19, GFR 44, glucose 123, troponin 60, BNP 2601.43, blood pressure 118/61, heart rate 100, temperature 97.6 F, O2 saturation 96% on oxygen. Chest x-ray revealing small bilateral pleural effusion with overlying atelectasis and/or consolidation, slightly increased compared to the prior exam; cardiomegaly and mild prominence of the pulmonary vasculature suggesting a degree of pulmonary vascular congestion in the appropriate clinical setting. Patient was started on IV Lasix, please see medication orders section in the computer. On my assessment, patient denies chest pain, no headache, no d izziness, no diaphoresis, currently on oxygen, no diarrhea, no nausea, no vomiting, no fever, no chills. Patient was admitted for further evaluation and medical management. Past Medical History AFIB, CHF, CKF, HTN, MD Past Surgical History PTCA Family History Reviewed, noncontributory to the management of this case. Past Social History The patient lives at home, denies smoking, alcohol or illicit drugs abuse. Review of Systems Constitutional: Yes: Weakness; No: Fever, Chills, Sweats, Malaise, Other Eyes: No: Pain, Vision change, Conjunctivae inflammation, Eyelid inflammation, Other, Redness ENT: No: Ear pain, Ear discharge, Nose pain, Nose discharge, Nose congestion, Mouth pain, Mouth swelling, Throat pain, Throat swelling, Other Respiratory: Cough, Shortness of breath, SOB with excertion; No: Dry, Wheezing, Hemoptysis, Pleuritic Pain, Sputum, Wheezing, Other Cardiovascular: No: Chest Pain, Palpitations, Orthopnea, Paroxysmal Noc. Dyspnea, Edema, Lt Headedness, Other Gastrointestinal: No: Nausea, Vomiting, Abdominal Pain, Diarrhea, Constipation, Melena, Hematochezia, Other Genitourinary: No Dysuria, No Frequency, No Incontinence, No Hematuria, No Retention, No Other Musculoskeletal: No: other, neck pain, shoulder pain, arm pain, back pain, hand pain, leg pain, foot pain Skin: No: Rash, Lesions, Jaundice, Bruising, Other Neurological: No: Weakness, Numbness, Incoordination, Change in speech, Confusion, Seizures, Other Allergies: Coded Allergies: Sulfa Antibiotics (Verified Allergy, Unknown, 04/18/23) Medications Current Medications Medications Dose Ordered Sig/Rudy Route Start Time Stop Time Status Last Admin Dose Admin Furosemide 40 mg DAILY IV 06/22/24 10:00 Levothyroxine Sodium 50 mcg QAM@0600 PO 06/22/24 06:00 Atorvastatin Calcium 20 mg HS PO 06/22/24 22:00 Apixaban 2.5 mg BID PO 06/22/24 10:00 Sodium Chloride 10 ml Q8HR IV 06/22/24 06:00 Acetaminophen/ Hydrocodone Bitart 1 tab Q4HP PRN PO 06/22/24 00:15 Ondansetron HCl 4 mg Q4HP PRN IV 06/22/24 00:15 Docusate Sodium 100 mg BIDPRN PRN PO 06/22/24 00:15 Acetaminophen 650 mg Q6HP PRN PO 06/22/24 00:15 Pantoprazole Sodium 40 mg DAILY IV 06/22/24 10:00 Exam Vital Signs Vital Signs Date Time Temp Pulse Resp B/P (MAP) Pulse Ox O2 Delivery O2 Flow Rate FiO2 06/21/24 21:57 118/61 06/21/24 21:55 Room Air* 0 21 06/21/24 20:45 97.6 134 20 96 97.6 General Appearance: Alert, Oriented X3, Cooperative, No acute distress HEENT: Atraumatic, PERRLA, EOMI, Mucous membr. moist/pink Respiratory: Normal air movement, Other (Diminished breath sounds) Cardiovascular: Regular rate, Normal S1, Normal S2, No murmurs Abdominal: Normal bowel sounds, Soft, No tenderness, No hepatospenomegaly, No masses Extremities: No clubbing, No cyanosis, No edema, Normal pulses, No tend erness/swelling Skin: No rashes, No breakdown, No significant lesion Neuro: Normal speech, Normal tone, Sensation intact, Cranial nerves 3-12 NL, Reflexes 2+, Other (Generalized weakness) Psych/Mental Status: Mental status NL, Mood NL Labs/Xrays Labs Test 06/21/24 22:03 06/21/24 14:52 Range/Units Troponin I High Sensitivity 60 *H </=34 ng/L White Blood Count 7.8 4.4-10.8 10^3/uL Red Blood Count 5.10 4.0-5.20 10^6/uL Hemoglobin 15.0 12.2-16.2 g/dL Hematocrit 45.8 36.0-46.0 % Mean Corpuscular Volume 89.8 80.0-100.0 fL Mean Corpuscular Hemoglobin 29.5 28.0-32.0 pg Mean Corpuscular Hemoglobin Concent 32.8 32.0-36.0 g/dL Red Cell Distribution Width 14.5 H 11.8-14.3 % Platelet Count 160 140-450 10^3/uL Mean Platelet Volume 9.2 6.9-10.8 fL Neutrophils (%) (Auto) 74.0 37.0-80.0 % Lymphocytes (%) (Auto) 11.7 10.0-50.0 % Monocytes (%) (Auto) 13.6 H 0.0-12.0 % Eosinophils (%) (Auto) 0.3 0.0-7.0 % Basophils (%) (Auto) 0.4 0.0-2.0 % Neutrophils # (Auto) 5.8 1.6-8.6 10 ^3/uL Lymphocytes # (Auto) 0.9 0.4-5.4 10 ^3/uL Monocytes # (Auto) 1.1 0-1.3 10 ^3/uL Eosinophils # (Auto) 0 0-0.8 10 ^3/uL Basophils # (Auto) 0 0-0.2 10 ^3/uL Nucleated Red Blood Cells 0.2 % Prothrombin Time 13.0 H 9.3-11.8 sec Prothrombin Time INR 1.25 H 0.9-1.15 Activated Partial Thromboplast Time 27.3 24.5-34.5 SEC Sodium Level 137 136-145 mmol/L Potassium Level 4.8 3.5-5.1 mmol/L Chloride Level 105 98-107 mmol/L Carbon Dioxide Level 23 20-31 mmol/L Anion Gap 9 5-15 Blood Urea Nitrogen 28 H 9-23 mg/dL Creatinine 1.19 H 0.550-1.02 mg/dL Glomerular Filtration Rate Calc 44 >90 mL/min BUN/Creatinine Ratio 23.5 H 10.0-20.0 Serum Glucose 123 H 74-106 mg/dL Calcium Level 9.5 8.7-10.4 mg/dL B-Type Natriuretic Peptide 2601.43 0-100 pg/mL PATIENT: MARY BENAVIDEZ ACCT: [id number] UNIT: [id number] : 1935 LOC: ER ROOM / BED: / AGE / SEX: 88 / F ADM STATUS: REG ER SERVICE 1415 ORDERING PHYSICIAN: EMILY DAMIAN MD PROCEDURE(s): CXRP - CHEST PORTABLE REASON: cough ORDER NUMBER(s): [id number], ACCESSION NUMBER(s): [id number] CLINICAL INFORMATION: 88 years old, Female; cough. TECHNIQUE: Single AP portable chest radiograph was obtained. COMPARISON: XY CHEST PORTABLE on DOS: 05/18/23, XY CHEST PORTABLE on DOS: 04/18/23, XY CHEST PORTABLE on DOS: 01/15/23 FINDINGS: Lungs: Small bilateral pleural effusions with overlying atelectasis and/or consolidation. Bilateral pleural catheters are seen, with a right pleural catheter extending toward the right lung apex left pleural catheter extending to the left lung base. Cardiac: Mild cardiomegaly Pulmonary vasculature: Mildly prominent pulmonary vasculature. Mediastinum/khloe: Dense calcification of the aortic arch. Bones: No acute osseous abnormality identified. Other: No other significant findings. IMPRESSION: 1. Small bilateral pleural effusions with overlying atelectasis and/or consolidation, slightly increased compared to the prior exam. Bilateral pleural catheters as described above. 2. Cardiomegaly and mild prominence of the pulmonary vasculature suggesting a degree of pulmonary vascular congestion in the appropriate clinical setting. Assessment/Plan Assessment/Plan Acute respiratory failure Bilateral pleural effusion Generalized weakness Acute heart failure with reduced ejection fraction and diastolic dysfunction Plan 1. Admit to telemetry unit 2. Breathing treatment 3. Pain control management 4. Management of fluids and electrolytes 5. Consultation for hospitalist 6. Diagnostic tests chest x-ray 7. DVT prophylaxis-on Eliquis 8. Repeat labs CBC, CMP in a.m. 9. Continue with current medical management 10. Treatment plan discussed with patient and RN. Patient verbalized understanding. Plan discussed with: Patient, Other (RN) My Orders Orders - EVELIN MONTESINOS DNP Procedure Category Date Status Time Complete Blood Count LAB 06/22/24 Logged 04:00 Comprehensive LAB 06/22/24 Logged Metabolic Panel 04:00 Furosemide Injection PHA 06/22/24 In Process (Lasix Injection) 10:00 Levothyroxine Tablet PHA 06/22/24 In Process (Synthroid Tablet) 06:00 Atorvastatin (Lipitor) PHA 06/22/24 In Process 22:00 Apixaban (Eliquis) PHA 06/22/24 In Process 10:00 Allergies JAMES 06/22/24 In Process 00:08 Code Status CODE 06/22/24 Transmitted 00:08 Sodium Chloride Lock PHA 06/22/24 In Process (Saline Lock Ns) 06:00 Oxygen Per Hour RT 06/22/24 Transmitted 00:08 Hydrocodone-Acet PHA 06/22/24 In Process 5/325mg Tab ([place] 00:15 Ondansetron Hcl PHA 06/22/24 In Process (Zofran) 00:15 Docusate Sodium PHA 06/22/24 In Process Capsule (Colace 00:15 Fall Risk Precautions JAMES 06/22/[address] 00:08 Complete Blood Count LAB 06/23/24 Verified 04:00 Comprehensive LAB 06/23/24 Verified Metabolic Panel 04:00 Cardiac DIET 06/22/24 Transmitted Diet-2gna,Lofat,Lochol Breakfast Condition: Serious JAMES 06/22/24 In Process 00:08 Acetaminophen Tablet PHA 06/22/24 In Process (Tylenol Tablet) 00:15 Sequential JAMES 06/22/24 In Process Compression Device Pantoprazole PHA 06/22/24 In Process (Protonix) 10:00 * Cardiology Consult CONS 06/22/24 Transmitted 00:16 Problem List: (1) Acute respiratory failure (2) Generalized weakness (3) Bilateral pleural effusion (4) Acute heart failure with reduced ejection fraction and diastolic dysfunction Date of Service: Jun 22, 2024 Billing Provider: EVELIN MONTESINOS DNP Common Visit Codes: 45260-[id number] INP/OBS CARE (HIGH) EVELIN MONTESINOS DNP Jun 22, 2024 04:47
[2024-06-22] MEDS: SODIUM CHLOR 0.9% PF (SALINE LOCK) 10ML VIAL/SYR IV SCH (06:04)
[2024-06-22] MEDS: LEVOTHYROXINE SODIUM 50 MCG TAB PO SCH (06:30)
[2024-06-22] MEDS: LEVOTHYROXINE SODIUM 25 MCG TAB PO SCH (07:00)
[2024-06-22 07:01] LABS: Hematocrit 42.3 % (36.0-46.0); Hemoglobin 13.6 g/dL (12.2-16.2); Mean Corpuscular Hemoglobin 29.5 pg (28.0-32.0); Mean Corpuscular Hgb Conc. 32.2 g/dL (32.0-36.0); Mean Corpuscular Volume 91.7 fL (80.0-100.0); Platelet Count (auto) 139 10^3/uL (140-450); Red Blood Cells 4.61 10^6/uL (4.0-5.20); White Blood Cell 10.4 10^3/uL (4.4-10.8)
[2024-06-22 07:09] LABS: Alanine Aminotransferase 19 U/L (7-40); Albumin 3.3 g/dL (3.2-4.8); Alkaline Phosphatase 94 U/L (46-116); Anion Gap 9 (5-15); BUN/Creatinine Ratio 20.2 (10.0-20.0); Blood Urea Nitrogen 21 mg/dL (9-23); Calcium 8.8 mg/dL (8.7-10.4); Chloride 107 mmol/L (98-107); Glucose 101 mg/dL (74-106); Potassium 4.4 mmol/L (3.5-5.1)
[2024-06-22 07:25] LABS: Band Neutrophils % (manual) 0; Basophils % (manual) 0 (0.0-2.0); Blast Cells 0; Eosinophils % (manual) 0 (0-7); Metamyelocytes % 0; Myelocytes % 0; Promyelocytes % 0; Reactive Lymphocytes 0
[2024-06-22 07:30] VITALS: PULSE 123; RESP 30; O2SAT 96
[2024-06-22 07:34] LABS: Aspartate Aminotransferase 49 U/L (13-40); Carbon Dioxide 20 mmol/L (20-31); Sodium 136 mmol/L (136-145)
[2024-06-22 07:35] LABS: Bilirubin, Total 2.2 mg/dL (0.2-1.0); Total Protein 5.5 g/dL (5.7-8.2)
[2024-06-22 08:54] LABS: Lymphocytes % (manual) 25 (10.0-50.0); Monocytes % (manual) 9 (0-12); Platelet Estimate Decreased
[2024-06-22 09:02] LABS: Magnesium 2.1 mg/dL (1.6-2.6)
[2024-06-22] MEDS: FUROSEMIDE 40 MG/4 ML VIAL IV SCH (10:00)
[2024-06-22] MEDS ORDERED: PANTOPRAZOLE 40 MG/10 ML VIAL INJ IV SCH (10:00)
[2024-06-22] MEDS ORDERED: APIXABAN 2.5 MG TAB PO SCH (10:00)
--- NOTE | 2024-06-22 10:36 | DVHINCON2 ---
Date Seen: Jun 22, 2024 Referring Physician JACINTO Stout Reason for Consultation Acute exacerbation of CHF History of Present Illness This is an 88-year-old female patient that presents to the emergency room with chief complaint of shortness of breath and bilateral lower extremity edema. The patient has a known history of congestive heart failure and reports that she stopped taking all of her medications because of their side effects. She now comes to the emergency room for worsening shortness of breath. Cardiology has now been consulted for further management. Initial twelve lead electrocardiogram reveals atrial fibrillation. Significant past medical history includes coronary artery disease status post PTCA X 3 CURT (on Aspirin), history myocardial infarction, congestive heart failure, atrial fibrillation (prescribed Eliquis but not taking it), bilateral pleural effusions with bilateral pleural drains in place, thyroid disease, prediabetes, legally blind, and hard of hearing. The patient was on hospice care at home. Per the patient and her son Sumanth at bedside, the patient has stopped taking all medications because of the side effects. Patient and son are adamant about not taking any medications including heart failure medications and only wish to diurese the patient while she is here. Past Medical History Past medical history reviewed. No other significant than mentioned above. Past Surgical History Denies all previous surgeries Family History: Cardiovascular disease G8 FATHER Cerebrovascular accident (CVA) G8 MOTHER FH: [place] (myocardial infarction) Family History Family history reviewed. Social History Denies the use of tobacco, alcohol or illicit drugs. Allergies: Coded Allergies: Sulfa Antibiotics (Verified Allergy, Unknown, 04/18/23) Home Meds Active Scripts Apixaban Base (ELIQUIS) 2.5 Mg Tab, 2.5 MG PO BID, #60 TAB Prov:CHRIS URIAS MD 05/21/23 Amiodarone HCl (Amiodarone HCl) 200 Mg Tab, 1 TAB PO DAILY, #30 TAB Prov:CHRIS URIAS MD 05/21/23 Empagliflozin (Jardiance) 10 Mg Tab, 10 MG PO QAM for 30 Days, #30 TAB 3 Refills Prov:COLLEEN OCHOA MD 01/18/23 Potassium Chloride (Klor-Con 10) 10 Meq Tab, 10 MEQ PO DAILY for 30 Days, #30 T AB 3 Refills Prov:COLLEEN OCHOA MD 01/18/23 Pantoprazole Sodium Sesquihydr (Pantoprazole Sodium) 40 Mg Tab, 40 MG PO DAILY for 30 Days, #30 TAB 3 Refills Prov:COLLEEN OCHOA MD 01/18/23 Atorvastatin Calcium (ATORVASTATIN CALCIUM) 20 Mg Tab, 40 MG PO HS for 30 Days, #60 TAB 3 Refills Prov:COLLEEN OCHOA MD 01/18/23 Reported Medications Furosemide (Furosemide) 20 Mg Tab, 20 MG PO DAILY for 30 Days, MG 01/16/23 Levothyroxine Sodium (Levothyroxine Sodium) 50 Mcg Tab, 50 MCG PO QAM for 30 Days, MCG 01/16/23 Home Meds Home medications reviewed. Current Medications Current Medications Medications (Trade) Dose Ordered Sig/Rudy Route PRN Reason Start Time Stop Time Status Last Admin Furosemide (Lasix Injection) 40 mg DAILY IV 06/22/24 10:00 Levothyroxine Sodium (Synthroid Tablet) 50 mcg QAM@0600 PO 06/22/24 06:00 06/22/24 06:42 DC Atorvastatin Calcium (Lipitor) 20 mg HS PO 06/22/24 22:00 06/22/24 07:22 DC Apixaban (Eliquis) 2.5 mg BID PO 06/22/24 10:00 06/22/24 07:22 DC Sodium Chloride (Saline Lock Ns) 10 ml Q8HR IV 06/22/24 06:00 06/22/24 06:04 Acetaminophen/ Hydrocodone Bitart ([place] 5/325MG Tab) 1 tab Q4HP PRN PO MODERATE PAIN (4-6 PAIN SCALE) 06/22/24 00:15 Ondansetron HCl (Zofran) 4 mg Q4HP PRN IV NAUSEA / VOMITING 06/22/24 00:15 Docusate Sodium (Colace Capsule) 100 mg BIDPRN PRN PO FOR CONSTIPATION 06/22/24 00:15 Acetaminophen (Tylenol Tablet) 650 mg Q6HP PRN PO PAIN SCALE 1-3 OR TEMP>100.4 06/22/24 00:15 Pantoprazole Sodium (Protonix) 40 mg DAILY IV 06/22/24 10:00 06/22/24 07:22 DC Nitroglycerin (Ntrostat Sublingual) 0.4 mg Q5MINP PRN SL FOR CHEST PAIN 06/22/24 04:45 Morphine Sulfate 2 mg Q30M PRN IV FOR CHEST PAIN 06/22/24 04:45 Levothyroxine Sodium (Synthroid Tablet) 25 mcg DAILY PO 06/22/24 06:00 06/22/24 07:00 Review of Systems Constitutional: No symptom reported Ears, Nose, & Throat: No symptom reported Eyes: No symptom reported Neurological: No symptoms reported Pulmonary/Respiratory: Shortness of breath Cardiovascular: Bilateral lower extremity edema Gastrointestinal: No symptom reported Genitourinary: No symptom reported Musculoskeletal: No symptom reported Skin: No symptom reported Psychiatric: No symptom reported Endocrine: No symptom reported Hematologic/Lymphatic: No symptom reported Vital Signs Vital Signs Date Time Temp Pulse Resp B/P (MAP) Pulse Ox O2 Delivery O2 Flow Rate FiO2 06/22/24 09:53 117 06/22/24 08:00 98.3 29 90/61 (71) 96 98.3 06/22/24 07:30 Room Air* 0 21 Physical Exam General Appearance: Cooperative. Well-developed. Well-nourished. No acute distress. Pulmonary/Respiratory: Bilateral pleural catheters in place. Diminished bilateral lower lobes Cardiovascular/Chest: Irregular rate and rhythm. Peripheral Pulses: 2+ Radial (R). 2+ Radial (L). 2+ Pedal (R). 2+ Pedal (L) Abdominal Exam: Normal bowel sounds. Ankle Exam: 3+ pitting edema Lower extremities: 3+ pitting edema Neuro/Mental Status: A/OX4, coherent. Thoughts/Psych: Normal thought pattern. Appropriate mood and affect. Good judgment and insight. Appearance: No acute distress. Skin Exam: Normal inspection. Normal color. Warm and dry. Labs/Diagnostic Data Labs Test 06/22/24 06:22 06/21/24 22:03 06/21/24 14:52 Range/Units White Blood Count 10.4 # 4.4-10.8 10^3/uL Red Blood Count 4.61 4.0-5.20 10^6/uL Hemoglobin 13.6 12.2-16.2 g/dL Hematocrit 42.3 36.0-46.0 % Mean Corpuscular Volume 91.7 80.0-100.0 fL Mean Corpuscular Hemoglobin 29.5 28.0-32.0 pg Mean Corpuscular Hemoglobin Concent 32.2 32.0-36.0 g/dL Red Cell Distribution Width 15.0 H 11.8-14.3 % Platelet Count 139 L 140-450 10^3/uL Mean Platelet Volume 9.0 6.9-10.8 fL Neutrophils (%) (Auto) 37.0-80.0 % Lymphocytes (%) (Auto) 10.0-50.0 % Monocytes (%) (Auto) 0.0-12.0 % Basophils (%) (Auto) 0.0-2.0 % Neutrophils # (Auto) 1.6-8.6 10 ^3/uL Lymphocytes # (Auto) 0.4-5.4 10 ^3/uL Monocytes # (Auto) 0-1.3 10 ^3/uL Differential Total Cells Counted 100.0 100 Neutrophils % (Manual) 66 37.0-80.0 Band Neutrophils % (Manual) 0 Lymphocytes % (Manual) 25 10.0-50.0 Monocytes % (Manual) 9 0-12 Eosinophils % (Manual) 0 0-7 Basophils % (Manual) 0 0.0-2.0 Metamyelocytes % (manual) 0 Myelocytes % (Manual) 0 Promyelocytes % (Manual) 0 Blast Cells % (Manual) 0 Reactive Lymphocytes 0 Platelet Estimate Decreased Sodium Level 136 136-145 mmol/L Potassium Level 4.4 3.5-5.1 mmol/L Chloride Level 107 98-107 mmol/L Carbon Dioxide Level 20 20-31 mmol/L Anion Gap 9 5-15 Blood Urea Nitrogen 21 9-23 mg/dL Creatinine 1.04 H 0.550-1.02 mg/dL Glomerular Filtration Rate Calc 52 >90 mL/min BUN/Creatinine Ratio 20.2 H 10.0-20.0 Serum Glucose 101 74-106 mg/dL Hemoglobin A1c 5.9 H <5.7 % A1C Calcium Level 8.8 8.7-10.4 mg/dL Magnesium Level 2.1 1.6-2.6 mg/dL Total Bilirubin 2.2 H 0.2-1.0 mg/dL Aspartate Amino Transferase (AST) 49 H 13-40 U/L Alanine Aminotransferase (ALT) 19 7-40 U/L Alkaline Phosphatase 94 46-116 U/L Total Protein 5.5 L 5.7-8.2 g/dL Albumin 3.3 3.2-4.8 g/dL Triglycerides Level 79 < 150 mg/dL Cholesterol Level 134 < 200 mg/dL LDL Cholesterol 81 < 100 mg/dL HDL Cholesterol 45 40-59 mg/dL Thyroid Stimulating Hormone (TSH) 1.55 0.55-4.78 uIU/mL Troponin I High Sensitivity 60 *H </=34 ng/L Eosinophils (%) (Auto) 0.3 0.0-7.0 % Eosinophils # (Auto) 0 0-0.8 10 ^3/uL Basophils # (Auto) 0 0-0.2 10 ^3/uL Nucleated Red Blood Cells 0.2 % Prothrombin Time 13.0 H 9.3-11.8 sec Prothrombin Time INR 1.25 H 0.9-1.15 Activated Partial Thromboplast Time 27.3 24.5-34.5 SEC B-Type Natriuretic Peptide 2601.43 0-100 pg/mL Assessment Acute on chronic decompensated HFrEF, NYHA class IV NSTEMI type II secondary to above Coronary artery disease s/p PTCA X 3 CURT (on ASA) Atrial fibrillation, likely persistent (refuses Eliquis) Mitral regurgitation, moderate degree Bilateral pleural effusions with pleural catheters in place Prediabetes Thyroid disease Plan/Recommendation We will continue with following plan/recommendations (Dr. Leigh): We will proceed with obtaining a transthoracic echocardiogram. Previous echocardiogram from 04/19/23 reveals EF 10% with moderate mitral regurgitation. We would recommend for the patient to be initiated on guideline directed medical therapy (GDMT) for CHF as tolerated with aggressive diuresis. Spoke with the patient and her son Sumanth who was at bedside. Both the patient and her son are adamant about refusing all medications that will be prescribed. The patient reports having major side effects to each medication discussed. The patient states that she will only accept Lasix. The patient and her son report that their goal for this stay is "to get rid of the fluid and go home". Educated the patient and her son about importance of GDMT for CHF. Patient still adamantly refusing treatment plan. Continue with strict intake and output, daily weights and maintain fluid restriction. [id number] VASc score: 5 points, HAS-BLED score: 2 points. Patient should be restarted on NOAC therapy given elevated [id number] score; however, patient states that she will not take Eliquis or any other forms of anticoagulation given her history of side effects. Educated the patient on risks of stroke. Patient understands risks of not being on anticoagulation and confirms she does not want to be initiated back onto her Eliquis. Thank you for allowing us to care for this patient. Please call with any questions or concerns. Critical care time spent: 44 minutes This medical document was created using an electronic medical record system with voice recognition software and computerized dictation system. Although this document has been carefully reviewed, there might still be some phonetic and typographical errors. Occasional wrong-word or ``sound-alike substitutions may have occurred due to the inherent limitations of voice recognition software. These areas are purely typographical due to imperfections of the software programs and do not reflect any compromise in the patient's medical care. Please read the chart carefully and recognize, using context, where these substitutions have occurred. Plan discussed with: Patient, Son, Other (Bedside RN Shahnaz) NYHA Physical activity limitations: Class4(Severe)discomfort (w any activit,symptoms at rest) Date of Service: Jun 22, 2024 Billing Provider: YOHANNES LEUNG Cardiology Common Codes: 94948-BTJFRJI INP/OBS CARE (High) Cardiology Consultation Codes: 11194-KBSJMEATC CONSULT <45MIN YOHANNES LEUNG Jun 22, 2024 10:36
--- NOTE | 2024-06-22 11:23 | DVHINCON2 ---
Date of service: Jun 22, [address] Yoav Carbajal Reason for Consultation Recurrent pleural effusion History of Present Illness An 88-year-old woman with past medical history of AFib, CHF, [place], hypertension, and chronic kidney disease who presented to ED on 06/21/24 with complaint of sh ortness of breath. Patient reports symptoms progressively got worse with lower extremity edema, shortness of breath on exertion, getting worse that prompted this visit. ED workup noted WBC 7.8, platelets 160, sodium 137, potassium 4.8, BUN 28, creatinine 1.19, GFR 44, glucose 123, troponin 60, BNP 2601.43. O2 saturation was 96% on oxygen. Chest x-ray revealing small bilateral pleural effusions and atelectasis, cardiomegaly and pulmonary vascular congestion. Patient was admitted for further care and pulmonary consultation is requested for evaluation and management of acute hypoxic respiratory failure, pleural effusion and atelectasis. Review of Systems: 14-point review of systems negative unless otherwise noted above. Past Medical History AFIB, CHF, chronic kidney disease, hypertension and [place] Past Surgical History PTCA Medications: Reviewed. Allergies: Sulfa Antibiotics. Family History: Heart disease/[place], CVA. Social History: No smoking, alcohol or illicit drug use. Family History: Cardiovascular disease G8 FATHER Cerebrovascular accident (CVA) G8 MOTHER FH: [place] (myocardial infarction) Allergies: Coded Allergies: Sulfa Antibiotics (Verified Allergy, Unknown, 04/18/23) Home Meds Active Scripts Amiodarone HCl (Amiodarone HCl) 200 Mg Tab, 1 TAB PO DAILY, #30 TAB Prov:CHRIS URIAS MD 05/21/23 Empagliflozin (Jardiance) 10 Mg Tab, 10 MG PO QAM for 30 Days, #30 TAB 3 Refills Prov:COLLEEN OCHOA MD 01/18/23 Potassium Chloride (Klor-Con 10) 10 Meq Tab, 10 MEQ PO DAILY for 30 Days, #30 TAB 3 Refills Prov:COLLEEN OCHOA MD 01/18/23 Pantoprazole Sodium Sesquihydr (Pantoprazole Sodium) 40 Mg Tab, 40 MG PO DAILY for 30 Days, #30 TAB 3 Refills Prov:COLLEEN OCHOA MD 01/18/23 Atorvastatin Calcium (ATORVASTATIN CALCIUM) 20 Mg Tab, 40 MG PO HS for 30 Days, #60 TAB 3 Refills Prov:COLLEEN OCHOA MD 01/18/23 Reported Medications Furosemide (Furosemide) 20 Mg Tab, 20 MG PO DAILY for 30 Days, MG 01/16/23 Levothyroxine Sodium (Levothyroxine Sodium) 50 Mcg Tab, 50 MCG PO QAM for 30 Days, MCG 01/16/23 Discontinued Scripts Apixaban Base (ELIQUIS) 2.5 Mg Tab, 2.5 MG PO BID, #60 TAB Prov:CHRIS URIAS MD 05/21/23 Current Medications Current Medications Medications (Trade) Dose Ordered Sig/Rudy Route PRN Reason Start Time Stop Time Status Last Admin Furosemide (Lasix Injection) 40 mg DAILY IV 06/22/24 10:00 06/22/24 10:00 Levothyroxine Sodium (Synthroid Tablet) 50 mcg QAM@0600 PO 06/22/24 06:00 06/22/24 06:42 DC Atorvastatin Calcium (Lipitor) 20 mg HS PO 06/22/24 22:00 06/22/24 07:22 DC Apixaban (Eliquis) 2.5 mg BID PO 06/22/24 10:00 06/22/24 07:22 DC Sodium Chloride (Saline Lock Ns) 10 ml Q8HR IV 06/22/24 06:00 06/22/24 06:04 Acetaminophen/ Hydrocodone Bitart ([place] 5/325MG Tab) 1 tab Q4HP PRN PO MODERATE PAIN (4-6 PAIN SCALE) 06/22/24 00:15 Ondansetron HCl (Zofran) 4 mg Q4HP PRN IV NAUSEA / VOMITING 06/22/24 00:15 Docusate Sodium (Colace Capsule) 100 mg BIDPRN PRN PO FOR CONSTIPATION 06/22/24 00:15 Acetaminophen (Tylenol Tablet) 650 mg Q6HP PRN PO PAIN SCALE 1-3 OR TEMP>100.4 06/22/24 00:15 Pantoprazole Sodium (Protonix) 40 mg DAILY IV 06/22/24 10:00 06/22/24 07:22 DC Nitroglycerin (Ntrostat Sublingual) 0.4 mg Q5MINP PRN SL FOR CHEST PAIN 06/22/24 04:45 Morphine Sulfate 2 mg Q30M PRN IV FOR CHEST PAIN 06/22/24 04:45 Levothyroxine Sodium (Synthroid Tablet) 25 mcg DAILY PO 06/22/24 06:00 06/22/24 10:10 Aspirin 81 mg DAILY PO 06/23/24 10:00 Vital Signs Vital Signs Date Time Temp Pulse Resp B/P (MAP) Pulse Ox O2 Delivery O2 Flow Rate FiO2 06/22/24 10:00 122/84 06/22/24 09:53 117 06/22/24 08:00 98.3 29 96 98.3 06/22/24 07:30 Room Air* 0 21 Physical Exam Gen.: Patient lying in bed in no apparent distress. On supplemental oxygen. Head: Normocephalic, atraumatic. Eyes: EOMI/PERRLA. Ears: Normal hearing. Normal anatomy. Neck/trachea: Trachea midline, supple. Nose: Normal external anatomy. Mouth: Moist mucous membranes. Chest: Decreased air entry bilaterally. No wheezing or rhonchi. Cardiovascular: Positive S1, positive S2. Regular rate and rhythm. Abdomen: Positive bowel sounds in all 4 quadrants. Soft, non-tender, non- distended. : Deferred. Rectal: Deferred. Skin: Warm, dry. Intact. Extremities: 2+ radial pulses bilaterally. No lower extremity edema. Neuro: Awake, alert, oriented x3. No gross motor or sensory deficits. Cranial nerves II through XII intact. Gait not assessed. Labs/Diagnostic Data Labs Test 06/22/24 06:22 06/21/24 22:03 06/21/24 14:52 Range/Units White Blood Count 10.4 # 4.4-10.8 10^3/uL Red Blood Count 4.61 4.0-5.20 10^6/uL Hemoglobin 13.6 12.2-16.2 g/dL Hematocrit 42.3 36.0-46.0 % Mean Corpuscular Volume 91.7 80.0-100.0 fL Mean Corpuscular Hemoglobin 29.5 28.0-32.0 pg Mean Corpuscular Hemoglobin Concent 32.2 32.0-36.0 g/dL Red Cell Distribution Width 15.0 H 11.8-14.3 % Platelet Count 139 L 140-450 10^3/uL Mean Platelet Volume 9.0 6.9-10.8 fL Neutrophils (%) (Auto) 37.0-80.0 % Lymphocytes (%) (Auto) 10.0-50.0 % Monocytes (%) (Auto) 0.0-12.0 % Basophils (%) (Auto) 0.0-2.0 % Neutrophils # (Auto) 1.6-8.6 10 ^3/uL Lymphocytes # (Auto) 0.4-5.4 10 ^3/uL Monocytes # (Auto) 0-1.3 10 ^3/uL Differential Total Cells Counted 100.0 100 Neutrophils % (Manual) 66 37.0-80.0 Band Neutrophils % (Manual) 0 Lymphocytes % (Manual) 25 10.0-50.0 Monocytes % (Manual) 9 0-12 Eosinophils % (Manual) 0 0-7 Basophils % (Manual) 0 0.0-2.0 Metamyelocytes % (manual) 0 Myelocytes % (Manual) 0 Promyelocytes % (Manual) 0 Blast Cells % (Manual) 0 Reactive Lymphocytes 0 Platelet Estimate Decreased Sodium Level 136 136-145 mmol/L Potassium Level 4.4 3.5-5.1 mmol/L Chloride Level 107 98-107 mmol/L Carbon Dioxide Level 20 20-31 mmol/L Anion Gap 9 5-15 Blood Urea Nitrogen 21 9-23 mg/dL Creatinine 1.04 H 0.550-1.02 mg/dL Glomerular Filtration Rate Calc 52 >90 mL/min BUN/Creatinine Ratio 20.2 H 10.0-20.0 Serum Glucose 101 74-106 mg/dL Hemoglobin A1c 5.9 H <5.7 % A1C Calcium Level 8.8 8.7-10.4 mg/dL Magnesium Level 2.1 1.6-2.6 mg/dL Total Bilirubin 2.2 H 0.2-1.0 mg/dL Aspartate Amino Transferase (AST) 49 H 13-40 U/L Alanine Aminotransferase (ALT) 19 7-40 U/L Alkaline Phosphatase 94 46-116 U/L Total Protein 5.5 L 5.7-8.2 g/dL Albumin 3.3 3.2-4.8 g/dL Triglycerides Level 79 < 150 mg/dL Cholesterol Level 134 < 200 mg/dL LDL Cholesterol 81 < 100 mg/dL HDL Cholesterol 45 40-59 mg/dL Thyroid Stimulating Hormone (TSH) 1.55 0.55-4.78 uIU/mL Troponin I High Sensitivity 60 *H </=34 ng/L Eosinophils (%) (Auto) 0.3 0.0-7.0 % Eosinophils # (Auto) 0 0-0.8 10 ^3/uL Basophils # (Auto) 0 0-0.2 10 ^3/uL Nucleated Red Blood Cells 0.2 % Prothrombin Time 13.0 H 9.3-11.8 sec Prothrombin Time INR 1.25 H 0.9-1.15 Activated Partial Thromboplast Time 27.3 24.5-34.5 SEC B-Type Natriuretic Peptide 2601.43 0-100 pg/mL Assessment Impression: Acute hypoxic respiratory failure Acute heart failure with reduced ejection fraction and diastolic dysfunction Bilateral pleural effusion, recurrent s/p bilateral Pleurx catheter Compressive atelectasis Generalized weakness Plan: CXR image and report reviewed. IMPRESSION: 1. Small bilateral pleural effusions with overlying atelectasis and/or consolidation, slightly increased compared to the prior exam. Bilateral pleural catheters as described above. 2. Cardiomegaly and mild prominence of the pulmonary vasculature suggesting a degree of pulmonary vascular congestion in the appropriate clinical setting. Drain Pleurx catheter bilaterally up to 500 mL. Supplemental oxygen Keep o2 saturation above 92% IS Diurese to euvolemia On Lasix Monitor ins/outs Monitor renal function Monitor electrolytes. Supplement as necessary. DVT prophylaxis-SCDs. Prognosis: Poor given patient's multiple co-morbidities. Rest of plan per hospitalist and other consultants. A total of 76 minutes of clinical care time was spent reviewing the patient record, examining the patient, making a diagnostic and therapeutic plan, discussing this plan with the medical personnel, following up on diagnostic studies and following the patient for clinical stability excluding any and all procedures. At least 50% of this time was spent in direct, [id number] contact. Thank you Dr. Carbajal for allowing me to participate in this patient's care. Further recommendations will depend on the patient's clinical course. Please do not hesitate to contact me if you have any questions or concerns. This medical document was created using an electronic medical record system with [employer] system. Although these documentations are being carefully reviewed, there may still be some phonetic and typographical changes. The errors are purely typographical, due to imperfection on the software program, and do not reflect any compromise in the patient's medical care. Plan discussed with: Patient, Son, Other (SHANNA Barnhart/MD Carbajal) LETTY RYAN MD Jun 22, 2024 11:23
--- NOTE | 2024-06-22 13:11 | DVHPN2 ---
Reviewed: Care Plan, H&P, Labs, Medications, Previous Orders, Radiology Changes from previous H/P or p: No Changes Eyes: No Pain, No Vision change, No Conjunctivae inflammation, No Eyelid inflammation, No Other, No Redness ENT: No Ear pain, No Ear discharge, No Nose pain, No Nose discharge, No Nose congestion, No Mouth pain, No Mouth swelling, No Throat pain, No Throat swelling, No Other Cardiovascular: No Chest Pain, No Palpitations, No Orthopnea, No Paroxysmal Noc. Dyspnea, No Edema, No Lt Headedness, No Other Respiratory: Cough; No Dry; Shortness of breath, SOB with excertion; No Wheezing, No Hemoptysis, No Pleuritic Pain, No Sputum, No Other Gastrointestinal: No Nausea, No Vomiting, No Abdominal Pain, No Diarrhea, No Constipation, No Melena, No Hematochezia, No Other Genitourinary: No Dysuria, No Frequency, No Incontinence, No Hematuria, No Retention, No Other Musculoskeletal: No other, No neck pain, No shoulder pain, No arm pain, No back pain, No hand pain, No leg pain, No foot pain Skin: No Rash, No Lesions, No Jaundice, No Bruising, No Other Objective Vitals Vital Signs Date Time Temp Pulse Resp B/P (MAP) Pulse Ox O2 Delivery O2 Flow Rate FiO2 06/22/24 10:00 122/84 06/22/24 09:53 117 06/22/24 08:00 98.3 29 96 98.3 06/22/24 07:30 Room Air* 0 21 Medications Current Medications Medications Dose Ordered Sig/Rudy Route Start Time Stop Time Status Last Admin Dose Admin Furosemide 40 mg DAILY IV 06/22/24 10:00 06/22/24 10:00 40 MG Sodium Chloride 10 ml Q8HR IV 06/22/24 06:00 06/22/24 06:04 10 ML Acetaminophen/ Hydrocodone Bitart 1 tab Q4HP PRN PO 06/22/24 00:15 Ondansetron HCl 4 mg Q4HP PRN IV 06/22/24 00:15 Docusate Sodium 100 mg BIDPRN PRN PO 06/22/24 00:15 Acetaminophen 650 mg Q6HP PRN PO 06/22/24 00:15 Nitroglycerin 0.4 mg Q5MINP PRN SL 06/22/24 04:45 Morphine Sulfate 2 mg Q30M PRN IV 06/22/24 04:45 Levothyroxine Sodium 25 mcg DAILY PO 06/22/24 06:00 06/22/24 10:10 25 MCG Aspirin 81 mg DAILY PO 06/23/24 10:00 Laboratory Results Laboratory Tests 06/22/24 06:22 Chemistry Test 06/21/24 14:52 06/22/24 06:22 Calcium Level 9.5 mg/dL (8.7-10.4) 8.8 mg/dL (8.7-10.4) Albumin 3.3 g/dL (3.2-4.8) Magnesium Level 2.1 mg/dL (1.6-2.6) Total Protein 5.5 g/dL (5.7-8.2) L Coagulation Test 06/21/24 14:52 Prothrombin Time 13.0 sec (9.3-11.8) H Prothrombin Time INR 1.25 (0.9-1.15) H Activated Partial Thromboplast Time 27.3 SEC (24.5-34.5) Lipid panel Test 06/22/24 06:22 Cholesterol Level 134 mg/dL (< 200) HDL Cholesterol 45 mg/dL (40-59) Triglycerides Level 79 mg/dL (< 150) Cardiac Markers Test 06/21/24 14:52 B-Type Natriuretic Peptide 2601.43 pg/mL (0-100) LFT Test 06/22/24 06:22 Alanine Aminotransferase (ALT) 19 U/L (7-40) Alkaline Phosphatase 94 U/L (46-116) Aspartate Amino Transferase (AST) 49 U/L (13-40) H Total Bilirubin 2.2 mg/dL (0.2-1.0) H HgA1c, TSH Test 06/22/24 06:22 Hemoglobin A1c 5.9 % A1C (<5.7) H Thyroid Stimulating Hormone (TSH) 1.55 uIU/mL (0.55-4.78) Labs and/or images reviewed: Labs reviewed by me, Image(s) reviewed by me Assessment/Plan Assessment/Plan Acute hypoxic respiratory failure: Oxygen by nasal cannula Acute heart failure with reduced ejection fraction and diastolic dysfunction Bilateral pleural effusion, recurrent,drainage of 500 mL of fluid by Dr. Licona s/p bilateral Pleurx catheter Compressive atelectasis Generalized weakness AFib CKD Hypertension History of [place] History of PTCA Time spent 65 minutes Patient is full code Advanced care planning time 20 minutes Plan discussed with: Patient My Orders Orders - TERESA RIDLEY MD Procedure Category Date Status Time *Consult CONS 06/22/24 Transmitted / 11:03 Date of Service: Jun 22, 2024 Billing Provider: TERESA RIDLEY MD Common Visit Codes: [id number] CARE 30-74 MIN TERESA RIDLEY MD Jun 22, 2024 13:11
[2024-06-22 19:24] VITALS: BP 104/66; PULSE 122; RESP 18; TEMP 98; O2SAT 97
[2024-06-22 20:00] VITALS: PULSE 122; PULSE 125; RESP 22; O2SAT 97
[2024-06-22 21:00] VITALS: BP 101/59; PULSE 125; RESP 22; TEMP 99.4; O2SAT 97
[2024-06-22] MEDS ORDERED: ATORVASTATIN 20 MG TAB PO SCH (22:00)
[2024-06-23] VITALS (8 sets, daily range): BP systolic 90–131; BP diastolic 42–68; PULSE 63–143; RESP 16–23; TEMP 97.2–99; O2SAT 94–99
[2024-06-23 06:14] LABS: Basophils # (auto) 0 10 ^3/uL (0-0.2); Basophils % (auto) 0.2 % (0.0-2.0); Eosinophils # (auto) 0 10 ^3/uL (0-0.8); Hematocrit 46.7 % (36.0-46.0); Hemoglobin 14.9 g/dL (12.2-16.2); Lymphocytes # (auto) 1.6 10 ^3/uL (0.4-5.4); Lymphocytes % (auto) 11.1 % (10.0-50.0); Mean Corpuscular Hemoglobin 28.8 pg (28.0-32.0); Mean Corpuscular Hgb Conc. 31.9 g/dL (32.0-36.0); Mean Corpuscular Volume 90.3 fL (80.0-100.0); Monocytes # (auto) 1.7 10 ^3/uL (0-1.3); Monocytes % (auto) 11.8 % (0.0-12.0); Neutrophils # (auto) 10.8 10 ^3/uL (1.6-8.6); Neutrophils % (auto) 76.9 % (37.0-80.0); Nucleated Red Blood Cells % 0.3 %; Platelet Count (auto) 126 10^3/uL (140-450); Red Blood Cells 5.16 10^6/uL (4.0-5.20); Red Cell Distribution Width 15.2 % (11.8-14.3)
[2024-06-23 06:50] LABS: Alanine Aminotransferase 37 U/L (7-40); Albumin 3.4 g/dL (3.2-4.8); Alkaline Phosphatase 89 U/L (46-116); Anion Gap 10 (5-15); BUN/Creatinine Ratio 21.4 (10.0-20.0); Calcium 9.1 mg/dL (8.7-10.4); Chloride 105 mmol/L (98-107); Potassium 4.6 mmol/L (3.5-5.1)
[2024-06-23 06:51] LABS: Aspartate Aminotransferase 83 U/L (13-40); Blood Urea Nitrogen 27 mg/dL (9-23); Carbon Dioxide 19 mmol/L (20-31); Glucose 116 mg/dL (74-106); Sodium 134 mmol/L (136-145)
[2024-06-23 06:53] LABS: Total Protein 5.6 g/dL (5.7-8.2)
[2024-06-23] MEDS: ASPirin 81 mg TAB PO SCH (09:47)
--- NOTE | 2024-06-23 11:47 | DVHPN2 ---
Reviewed: Care Plan, H&P, Labs, Medications, Previous Orders, Radiology Changes from previous H/P or p: No Changes Eyes: No Pain, No Vision change, No Conjunctivae inflammation, No Eyelid inflammation, No Other, No Redness ENT: No Ear pain, No Ear discharge, No Nose pain, No Nose discharge, No Nose congestion, No Mouth pain, No Mouth swelling, No Throat pain, No Throat swelling, No Other Cardiovascular: No Chest Pain, No Palpitations, No Orthopnea, No Paroxysmal Noc. Dyspnea, No Edema, No Lt Headedness, No Other Respiratory: Cough; No Dry; Shortness of breath, SOB with excertion; No Wheezing, No Hemoptysis, No Pleuritic Pain, No Sputum, No Other Gastrointestinal: No Nausea, No Vomiting, No Abdominal Pain, No Diarrhea, No Constipation, No Melena, No Hematochezia, No Other Genitourinary: No Dysuria, No Frequency, No Incontinence, No Hematuria, No Retention, No Other Musculoskeletal: No other, No neck pain, No shoulder pain, No arm pain, No back pain, No hand pain, No leg pain, No foot pain Skin: No Rash, No Lesions, No Jaundice, No Bruising, No Other Objective Vitals Vital Signs Date Time Temp Pulse Resp B/P (MAP) Pulse Ox O2 Delivery O2 Flow Rate FiO2 06/23/24 09:47 107/68 06/23/24 08:25 98.1 71 18 94 98.1 06/23/24 08:00 Nasal Cannula* 2 28 Intake/Output Intake and Output 06/23/24 07:00 Intake Total 400 ml Output Total 1500 ml Balance -1100 ml Intake Oral 150 ml IV Total 250 ml Output Urine Total 1000 ml Drainage Total 500 ml # Bowel Movements 1 Medications Current Medications Medications Dose Ordered Sig/Rudy Route Start Time Stop Time Status Last Admin Dose Admin Furosemide 40 mg DAILY IV 06/22/24 10:00 06/23/24 09:47 40 MG Sodium Chloride 10 ml Q8HR IV 06/22/24 06:00 06/23/24 06:00 10 ML Acetaminophen/ Hydrocodone Bitart 1 tab Q4HP PRN PO 06/22/24 00:15 Ondansetron HCl 4 mg Q4HP PRN IV 06/22/24 00:15 Docusate Sodium 100 mg BIDPRN PRN PO 06/22/24 00:15 Acetaminophen 650 mg Q6HP PRN PO 06/22/24 00:15 Nitroglycerin 0.4 mg Q5MINP PRN SL 06/22/24 04:45 Morphine Sulfate 2 mg Q30M PRN IV 06/22/24 04:45 Levothyroxine Sodium 25 mcg DAILY PO 06/22/24 06:00 06/22/24 10:10 25 MCG Aspirin 81 mg DAILY PO 06/23/24 10:00 06/23/24 09:47 81 MG Laboratory Results Laboratory Tests 06/23/24 04:59 Chemistry Test 06/23/24 04:59 Albumin 3.4 g/dL (3.2-4.8) Calcium Level 9.1 mg/dL (8.7-10.4) Total Protein 5.6 g/dL (5.7-8.2) L LFT Test 06/23/24 04:59 Alanine Aminotransferase (ALT) 37 U/L (7-40) Alkaline Phosphatase 89 U/L (46-116) Aspartate Amino Transferase (AST) 83 U/L (13-40) H Total Bilirubin 2.0 mg/dL (0.2-1.0) H Labs and/or images reviewed: Labs reviewed by me, Image(s) reviewed by me Assessment/Plan Assessment/Plan Acute hypoxic respiratory failure: Oxygen by nasal cannula Acute heart failure with reduced ejection fraction and diastolic dysfunction [place] heart Association class IV, cardiology consult appreciated Bilateral pleural effusion, status post drainage of 500 mL of fluid by Dr. Licona s/p bilateral Pleurx catheter Compressive atelectasis Generalized weakness AFib : Refuses Eliquis Acute kidney injury Hypertension History of [place] History of CAD status post PTCA and 3 CURT Time spent 65 minutes Patient is full code Advanced care planning time 20 minutes Patient is hospice revoked Patient belongs to [facility], to be transferred to [facility] on 06/25/24 Plan discussed with: Patient My Orders Orders - TERESA RIDLEY MD Procedure Category Date Status Time * Radiologist Consult CONS 06/22/24 Transmitted 18:24 Date of Service: Jun 23, 2024 Billing Provider: TERESA RIDLEY MD Common Visit Codes: [id number] INP/OBS CARE(HIGH) TERESA RIDLEY MD Jun 23, 2024 11:47
--- NOTE | 2024-06-23 12:15 | DVHSR ---
APPROVED REPORT EXAM: Two-dimensional and M-mode echocardiogram with Doppler and color Doppler. Blood Pressure: 95/65 mmHg INDICATION Eval for cardiac function RISK FACTORS Height: 63, Weight: 130 DIMENSIONS LVDd5.4 (3.8-5.7cm)LA (2D)4.2 (1.9-4.0cm)Aortic Root3.0 (2.0-3.7cm) LVDs4.9 (2.5-4.0cm)LA (MM) (1.9-4.0cm)Aortic Cusp Exc0.9 (1.5-2.0cm) EF (%) 20.0 (55-70%)Rt. Atrium5.1 (1.9-4.0cm)Asc. Aorta cm IVSd1.0 (0.7-1.1cm)RV (D) (1.8-2.4cm) PWd1.0 (0.7-1.1cm) Mitral Valve MitralMitral Stenosis E wave0.98m/sMV Mean GR.mmHg A wavem/sMV Peak GR.73mmHg E/A ratio0.02D MVAcm2 DECEL [employer] 1/2 [id number] IVRTmsDop MVA5.38cm2 Aortic Valve Aortic ValveAortic Stenosis V10.96m/Margarita Mean GR.4mmHg V21.31m/Margarita Peak GR.7mmHg LVOT Diameter1.9 (1.8-2.4cm)Doppler AVA2.08cm2 Tricuspid Valve TR Velocity2.33m/s [id number] LEFT VENTRICLE Mildly dilated left ventricle with severely decreased systolic function. Ejection fraction is estima thai at 10-15 % based on visual estimate. There is severe global hypokinesis. Diastolic function is indeterminate. RIGHT VENTRICLE Severely dilated right ventricle with severely decreased systolic function. ATRIA Both atria are severely dilated in size. MITRAL VALVE Mitral valve leaflets appeared to me moderately tented. There is xibj-bf-wbohvgbf eccentric mitral r egurgitation. No significant stenosis. PULMONIC VALVE Not well visualized. GREAT VESSELS Aortic root and proximal ascending aorta are normal in size. PERICARDIAL EFFUSION No significant effusion. IVC is dilated in size. There is significant left-sided pleural effusion. Conclusion Dilated left ventricle with severely decreased left ventricular systolic function; ejection fraction of 10-15%. There is severe global hypokinesis. Dilated right ventricle with severely decreased systolic function. Likely severe tricuspid regurgitation and sjvf-za-oasarxzv mitral regurgitation. Calcified aortic valve with no significant stenosis. Severe biatrial enlargement. Left-sided pleural effusion. PA systolic pressure is estimated at 44 mm Hg.
--- NOTE | 2024-06-23 13:18 | ECG ---
[facility] Test Date: 2024-06-22 Test Time: 09:53:44 Pat Name: MARY BENAVIDEZ Department: er Room: [facility]9T B Gender: F [employer] Supervisor: torres : 1935 Requested By: YOHANNES LEUNG Order Number: [id number] Reading MD: Obdulio Bonilla Measurements Intervals [place] Rate: 117 P: 0 PA: 0 QRS: 218 QRSD: 108 T: 0 QT: 334 QTc: 466 Interpretive Statements Atrial fibrillation Markedly posterior QRS axis Consider left ventricular hypertrophy Probable lateral infarct, age indeterminate Anterior Q waves, possibly due to LVH Nonspecific T abnormalities, lateral leads Electronically Signed On 06-23-2024 22:17:06 PST by Obdulio Bonilla Please click the below link to view image of tracing.
--- NOTE | 2024-06-23 16:24 | DVHPN2 ---
Consult Progress Note Subjective Other Systems: Patient denies any cardiac symptoms at time of assessment Objective vital signs Vital Sign Date Time Temp Pulse Resp B/P (MAP) Pulse Ox O2 Delivery O2 Flow Rate FiO2 06/23/24 12:51 98.1 83 20 90/58 (69) 99 98.1 06/23/24 08:00 Nasal Cannula* 2 28 Total Intake and Output 06/22/24 06/22/24 06/23/24 15:00 23:00 07:00 Intake Total 250 ml 150 ml Output Total 500 ml 1000 ml Balance 250 ml -500 ml -850 ml medications Current Medications Medications Dose Ordered Sig/Rudy Route Start Time Stop Time Status Last Admin Dose Admin Furosemide 40 mg DAILY IV 06/22/24 10:00 06/23/24 09:47 40 MG Sodium Chloride 10 ml Q8HR IV 06/22/24 06:00 06/23/24 06:00 10 ML Acetaminophen/ Hydrocodone Bitart 1 tab Q4HP PRN PO 06/22/24 00:15 Ondansetron HCl 4 mg Q4HP PRN IV 06/22/24 00:15 Docusate Sodium 100 mg BIDPRN PRN PO 06/22/24 00:15 Acetaminophen 650 mg Q6HP PRN PO 06/22/24 00:15 Nitroglycerin 0.4 mg Q5MINP PRN SL 06/22/24 04:45 Morphine Sulfate 2 mg Q30M PRN IV 06/22/24 04:45 Levothyroxine Sodium 25 mcg DAILY PO 06/22/24 06:00 06/22/24 10:10 25 MCG Aspirin 81 mg DAILY PO 06/23/24 10:00 06/23/24 09:47 81 MG Examination: GENERAL:Abnormal (Generalized weakness), LUNGS:Normal, CVS:Normal, NEURO:Normal laboratory and microbiology Laboratory Tests 06/23/24 04:59 Test 06/23/24 04:59 Range/Units Serum Glucose 116 H 74-106 mg/dL Problem List/Assessment/Plan Problem List/Assessment/Plan 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 Reynaga): Transthoracic echocardiogram reveals EF 10-15% with severe global hypokinesis. We would recommend for the patient to be initiated on guideline directed medical therapy (GDMT) for CHF as tolerated with aggressive diuresis. We will also recommend single antiplatelet therapy and lipid-lowering agent for history of CAD with three stents placed. Had a long discussion with the patient regarding plan of care. Patient adamantly refusing any initiation of medications and still insists on only receiving diuretics. Educated the patient on importance of cardiac medications, she is refusing at this time and states "I don't want any of them, I won't take them". Continue with strict intake and output, daily weights and maintain fluid restriction. DAE2ES0 VASc score: 5 points, HAS-BLED score: 2 points. Patient should be restarted on NOAC therapy given elevated [id number] score; however, patient states that she will not take Eliquis or any other forms of anticoagulation given her history of side effects. Educated the patient on risks of stroke. Patient understands risks of not being on anticoagulation and confirms she does not want to be initiated back onto her Eliquis. Given that the patient does not want any treatment from Cardiology aspect, we will sign off the case at this time. Please reconsult if needed. Thank you for allowing us to care for this patient. Please call with any questions or concerns. This medical document was created using an electronic medical record system with voice recognition software and computerized dictation system. Although this document has been carefully reviewed, there might still be some phonetic and typographical errors. Occasional wrong-word or ``sound-alike substitutions may have occurred due to the inherent limitations of voice recognition software. These areas are purely typographical due to imperfections of the software programs and do not reflect any compromise in the patient's medical care. Please read the chart carefully and recognize, using context, where these substitutions have occurred. Plan discussed with: Patient Date of Service: Jun 23, 2024 Billing Provider: TREV REYNAGA MD Common Visit Codes: [id number] INP/OBS CARE(HIGH) YOHANNES LEUNG [facility] Jun 23, 2024 16:24
--- NOTE | 2024-06-23 23:42 | DVHPN2 ---
Progress Note - Dictate Date Seen: Jun 23, 2024 Medical Necessity Reason Pt with a Central, PICC or Fol: No Subjective Patient seen and examined at bedside. Remains on supplemental oxygen Overnight events reviewed. vital signs Vital Sign Date Time Temp Pulse Resp B/P (MAP) Pulse Ox O2 Delivery O2 Flow Rate FiO2 06/23/24 17:00 97.2 63 19 100/68 (79) 99 97.2 06/23/24 08:00 Nasal Cannula* 2 28 Total Intake and Output 06/22/24 06/22/24 06/23/24 15:00 23:00 07:00 Intake Total 250 ml 150 ml Output Total 500 ml 1000 ml Balance 250 ml -500 ml -850 ml medications Current Medications Medications Dose Ordered Sig/Rudy Route Start Time Stop Time Status Last Admin Dose Admin Furosemide 40 mg DAILY IV 06/22/24 10:00 06/23/24 09:47 40 MG Sodium Chloride 10 ml Q8HR IV 06/22/24 06:00 06/23/24 14:00 10 ML Acetaminophen/ Hydrocodone Bitart 1 tab Q4HP PRN PO 06/22/24 00:15 Ondansetron HCl 4 mg Q4HP PRN IV 06/22/24 00:15 Docusate Sodium 100 mg BIDPRN PRN PO 06/22/24 00:15 Acetaminophen 650 mg Q6HP PRN PO 06/22/24 00:15 Nitroglycerin 0.4 mg Q5MINP PRN SL 06/22/24 04:45 Morphine Sulfate 2 mg Q30M PRN IV 06/22/24 04:45 Levothyroxine Sodium 25 mcg DAILY PO 06/22/24 06:00 06/22/24 10:10 25 MCG Aspirin 81 mg DAILY PO 06/23/24 10:00 06/23/24 09:47 81 MG objective Gen.: Patient lying in bed in no apparent distress. On supplemental oxygen. Head: Normocephalic, atraumatic. Eyes: EOMI/PERRLA. Ears: Normal hearing. Normal anatomy. Neck/trachea: Trachea midline, supple. Nose: Normal external anatomy. Mouth: Moist mucous membranes. Chest: Decreased air entry bilaterally. No wheezing or rhonchi. Cardiovascular: Positive S1, positive S2. Regular rate and rhythm. Abdomen: Positive bowel sounds in all 4 quadrants. Soft, non-tender, non- distended. : Deferred. Rectal: Deferred. Skin: Warm, dry. Intact. Extremities: 2+ radial pulses bilaterally. No lower extremity edema. Neuro: Awake, alert, oriented x3. No gross motor or sensory deficits. Cranial nerves II through XII intact. Gait not assessed. 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 Pt son insists on drip drain. Supplemental oxygen. Monitor ins/outs. Continue diuresing. Plan: CXR image and report reviewed. IMPRESSION: 1. Small bilateral pleural effusions with overlying atelectasis and/or consolidation, slightly increased compared to the prior exam. Bilateral pleural catheters as described above. 2. Cardiomegaly and mild prominence of the pulmonary vasculature suggesting a degree of pulmonary vascular congestion in the appropriate clinical setting. Drain Pleurx catheter bilaterally up to 500 mL. Supplemental oxygen Keep o2 saturation above 92% IS Diurese to euvolemia On Lasix Monitor ins/outs Monitor renal function Monitor electrolytes. Supplement as necessary. DVT prophylaxis-SCDs. Prognosis: Poor given patient's multiple co-morbidities. Rest of plan per hospitalist and other consultants. A total of 57 minutes of clinical care time was spent reviewing the patient record, examining the patient, making a diagnostic and therapeutic plan, discussing this plan with the medical personnel, following up on diagnostic studies and following the patient for clinical stability excluding any and all procedures. At least 50% of this time was spent in direct, ifxw-wk-hakm contact. Thank you Dr. Carbajal for allowing me to participate in this patient's care. Further recommendations will depend on the patient's clinical course. Please do not hesitate to contact me if you have any questions or concerns. This medical document was created using an electronic medical record system with [employer] system. Although these documentations are being carefully reviewed, there may still be some phonetic and typographical changes. The errors are purely typographical, due to imperfection on the software program, and do not reflect any compromise in the patient's medical care. Plan discussed with: Other (RN, MD) LETTY RYAN MD Jun 23, 2024 23:42
[2024-06-24] VITALS (7 sets, daily range): BP systolic 88–114; BP diastolic 55–67; PULSE 66–143; RESP 18–24; TEMP 97.5–98.3; O2SAT 95–100
--- NOTE | 2024-06-24 07:15 | DVH ---
CHEST RADIOGRAPH Indication: pleura effusion eval Technique: Single frontal view of the chest was obtained Comparison: XY CHEST PORTABLE on DOS: 06/21/24 FINDINGS: Lines and Tubes: Right chest tube is unchanged. Left chest tube is also unchanged. Lungs: Bibasilar opacities. Prominent pulmonary vasculature. Pleura: Stable bilateral pleural effusions. No pneumothorax. Cardiomediastinal contours: Stable cardiomegaly. Bones: No acute osseous abnormality. IMPRESSION: 1. Stable pulmonary vascular congestion. 2. Stable bilateral pleural effusions and bibasilar atelectasis. Chest tubes are unchanged in positio n.
--- NOTE | 2024-06-24 11:50 | DVHPN2 ---
Reviewed: Care Plan, H&P, Labs, Medications, Previous Orders, Radiology Changes from previous H/P or p: No Changes Eyes: No Pain, No Vision change, No Conjunctivae inflammation, No Eyelid inflammation, No Other, No Redness ENT: No Ear pain, No Ear discharge, No Nose pain, No Nose discharge, No Nose congestion, No Mouth pain, No Mouth swelling, No Throat pain, No Throat swelling, No Other Cardiovascular: No Chest Pain, No Palpitations, No Orthopnea, No Paroxysmal Noc. Dyspnea, No Edema, No Lt Headedness, No Other Respiratory: Cough; No Dry; Shortness of breath, SOB with excertion; No Wheezing, No Hemoptysis, No Pleuritic Pain, No Sputum, No Other Gastrointestinal: No Nausea, No Vomiting, No Abdominal Pain, No Diarrhea, No Constipation, No Melena, No Hematochezia, No Other Genitourinary: No Dysuria, No Frequency, No Incontinence, No Hematuria, No Retention, No Other Musculoskeletal: No other, No neck pain, No shoulder pain, No arm pain, No back pain, No hand pain, No leg pain, No foot pain Skin: No Rash, No Lesions, No Jaundice, No Bruising, No Other Objective Vitals Vital Signs Date Time Temp Pulse Resp B/P (MAP) Pulse Ox O2 Delivery O2 Flow Rate FiO2 06/24/24 08:45 97.7 120 22 88/67 (74) 95 97.7 06/24/24 08:00 Nasal Cannula* 2 28 Intake/Output Intake and Output 06/24/24 07:00 Intake Total 1440 ml Output Total 700 ml Balance 740 ml Intake Oral 1440 ml Output Urine Total 700 ml # Voids 1 Medications Current Medications Medications Dose Ordered Sig/Rudy Route Start Time Stop Time Status Last Admin Dose Admin Furosemide 40 mg DAILY IV 06/22/24 10:00 06/23/24 09:47 40 MG Sodium Chloride 10 ml Q8HR IV 06/22/24 06:00 06/24/24 06:00 10 ML Acetaminophen/ Hydrocodone Bitart 1 tab Q4HP PRN PO 06/22/24 00:15 Ondansetron HCl 4 mg Q4HP PRN IV 06/22/24 00:15 Docusate Sodium 100 mg BIDPRN PRN PO 06/22/24 00:15 Acetaminophen 650 mg Q6HP PRN PO 06/22/24 00:15 Nitroglycerin 0.4 mg Q5MINP PRN SL 06/22/24 04:45 Morphine Sulfate 2 mg Q30M PRN IV 06/22/24 04:45 Levothyroxine Sodium 25 mcg DAILY PO 06/22/24 06:00 06/24/24 08:29 25 MCG Aspirin 81 mg DAILY PO 06/23/24 10:00 06/24/24 08:29 81 MG Laboratory Results Laboratory Tests 06/23/24 04:59 Labs and/or images reviewed: Labs reviewed by me, Image(s) reviewed by me Assessment/Plan Assessment/Plan Acute hypoxic respiratory failure: Oxygen by nasal cannula Acute heart failure with reduced ejection fraction and diastolic dysfunction [place] heart Association class IV, cardiology consult appreciated Bilateral pleural effusion, status post drainage of 500 mL of fluid by Dr. Licona s/p bilateral Pleurx catheter Compressive atelectasis Generalized weakness AFib : Refuses Eliquis Acute kidney injury Hypertension History of [place] History of CAD status post PTCA and 3 CURT Time spent 55 minutes Patient is full code Advanced care planning time 20 minutes Patient is hospice revoked Patient belongs to [facility], to be transferred to [facility] on 06/25/24 Plan discussed with: Patient My Orders Orders - TERESA RIDLEY MD Procedure Category Date Status Time * Osteology Teacher CONS 06/23/24 Transmitted Consult Date of Service: Jun 24, 2024 Billing Provider: TERESA RIDLEY MD Common Visit Codes: [id number] INP/OBS CARE(HIGH) TERESA RIDLEY MD Jun 24, 2024 11:50
--- NOTE | 2024-06-24 22:17 | DVHPN2 ---
Progress Note - Dictate Date Seen: Jun 24, 2024 Medical Necessity Reason Pt with a Central, PICC or Fol: Yes The following are medically ne: Sanches Catheter Reason for sanches catheter: Strict I&O Subjective Patient seen and examined at bedside. Remains on supplemental oxygen Overnight events reviewed. vital signs Vital Sign Date Time Temp Pulse Resp B/P (MAP) Pulse Ox O2 Delivery O2 Flow Rate FiO2 06/24/24 19:30 142 20 Nasal Cannula* 2 28 06/24/24 18:00 97.8 102/65 (77) 96 97.8 Total Intake and Output 06/23/24 06/23/24 06/24/24 15:00 23:00 07:00 Intake Total 540 ml 900 ml Output Total 400 ml 300 ml Balance 140 ml 600 ml medications Current Medications Medications Dose Ordered Sig/Rudy Route Start Time Stop Time Status Last Admin Dose Admin Furosemide 40 mg DAILY IV 06/22/24 10:00 06/23/24 09:47 40 MG Sodium Chloride 10 ml Q8HR IV 06/22/24 06:00 06/24/24 14:00 10 ML Acetaminophen/ Hydrocodone Bitart 1 tab Q4HP PRN PO 06/22/24 00:15 Ondansetron HCl 4 mg Q4HP PRN IV 06/22/24 00:15 Docusate Sodium 100 mg BIDPRN PRN PO 06/22/24 00:15 Acetaminophen 650 mg Q6HP PRN PO 06/22/24 00:15 Nitroglycerin 0.4 mg Q5MINP PRN SL 06/22/24 04:45 Morphine Sulfate 2 mg Q30M PRN IV 06/22/24 04:45 Levothyroxine Sodium 25 mcg DAILY PO 06/22/24 06:00 06/24/24 08:29 25 MCG Aspirin 81 mg DAILY PO 06/23/24 10:00 06/24/24 08:29 81 MG objective Gen.: Patient lying in bed in no apparent distress. On supplemental oxygen. Head: Normocephalic, atraumatic. Eyes: EOMI/PERRLA. Ears: Normal hearing. Normal anatomy. Neck/trachea: Trachea midline, supple. Nose: Normal external anatomy. Mouth: Moist mucous membranes. Chest: Decreased air entry bilaterally. No wheezing or rhonchi. Cardiovascular: Positive S1, positive S2. Regular rate and rhythm. Abdomen: Positive bowel sounds in all 4 quadrants. Soft, non-tender, non- distended. : Deferred. Rectal: Deferred. Skin: Warm, dry. Intact. Extremities: 2+ radial pulses bilaterally. No lower extremity edema. Neuro: Awake, alert, oriented x3. No gross motor or sensory deficits. Cranial nerves II through XII intact. Gait not assessed. laboratory and microbiology Laboratory Tests 06/23/24 04:59 Test 06/23/24 04:59 Range/Units Serum Glucose 116 H 74-106 mg/dL Assessment/Plan Impression: Acute hypoxic respiratory failure Acute heart failure with reduced ejection fraction and diastolic dysfunction Bilateral pleural effusion, recurrent s/p bilateral Pleurx catheter Compressive atelectasis Generalized weakness Events: Events: Remains on supplemental oxygen, 2 LPM NC Taper O2 as tolerated Continue daily PleurX drainage CXR demonstrates stable pulmonary vascular congestion. Stable bilateral pleural effusions and bibasilar atelectasis Incentive spirometry Pain control Avoid oversedation Lasix for diuresis - pt refused medication Monitor renal function Disposition per hospitalist. Labs and imaging reviewed. Rest of plan as noted below. Plan: CXR image and report reviewed. IMPRESSION: 1. Small bilateral pleural effusions with overlying atelectasis and/or consolidation, slightly increased compared to the prior exam. Bilateral pleural catheters as described above. 2. Cardiomegaly and mild prominence of the pulmonary vasculature suggesting a degree of pulmonary vascular congestion in the appropriate clinical setting. Drain Pleurx catheter bilaterally up to 500 mL. Supplemental oxygen Keep o2 saturation above 92% IS Diurese to euvolemia On Lasix Monitor ins/outs Monitor renal function Monitor electrolytes. Supplement as necessary. DVT prophylaxis-SCDs. Prognosis: Poor given patient's multiple co-morbidities. Rest of plan per hospitalist and other consultants. A total of 51 minutes of clinical care time was spent reviewing the patient record, examining the patient, making a diagnostic and therapeutic plan, discussing this plan with the medical personnel, following up on diagnostic studies and following the patient for clinical stability excluding any and all procedures. At least 50% of this time was spent in direct, [id number] contact. Thank you Dr. Carbajal for allowing me to participate in this patient's care. Further recommendations will depend on the patient's clinical course. Please do not hesitate to contact me if you have any questions or concerns. This medical document was created using an electronic medical record system with [employer] dictation system. Although these documentations are being carefully reviewed, there may still be some phonetic and typographical changes. The errors are purely typographical, due to imperfection on the software program, and do not reflect any compromise in the patient's medical care. Plan discussed with: Patient, Other (SHANNA Matt) LETTY RYAN MD Jun 24, 2024 22:17
[2024-06-25] VITALS (8 sets, daily range): BP systolic 74–114; BP diastolic 53–65; PULSE 70–120; RESP 16–28; TEMP 97.3–98.5; O2SAT 94–95
--- NOTE | 2024-06-25 10:04 | ECG ---
[facility] Test Date: 2024-06-24 Test Time: 01:00:26 Pat Name: MARY BENAVIDEZ Department: Room: 0289T B Gender: F [employer]: GP : 1935 Requested By: JEANNETTE GUTIERREZ Order Number: [id number] Reading MD: Obdulio Bonilla Measurements Intervals Cullen Rate: 124 P: 0 DC: 0 QRS: -52 QRSD: 109 T: 120 QT: 315 QTc: 453 Interpretive Statements Atrial fibrillation Left anterior fascicular block LVH with secondary repolarization abnormality Anterior Q waves possibly due to LVH No significant change Electronically Signed On 06-25-2024 21:05:15 PST by Obdulio Bonilla Please click the below link to view image of tracing.
--- NOTE | 2024-06-25 16:47 | DVHDS2 ---
Discharge Summary Date of Admission Jun 22, 2024 at 04:45 Date of Discharge: Jun 25, 2024 Labs/Diagnostic Data: Laboratory Results Test 06/23/24 04:59 06/22/24 06:22 06/21/24 22:03 06/21/24 14:52 White Blood Count 14.0 10^3/uL (4.4-10.8) Red Blood Count 5.16 10^6/uL (4.0-5.20) Hemoglobin 14.9 g/dL (12.2-16.2) Hematocrit 46.7 % (36.0-46.0) Mean Corpuscular Volume 90.3 fL (80.0-100.0) Mean Corpuscular Hemoglobin 28.8 pg (28.0-32.0) Mean Corpuscular Hemoglobin Concent 31.9 g/dL (32.0-36.0) Red Cell Distribution Width 15.2 % (11.8-14.3) Platelet Count 126 10^3/uL (140-450) Mean Platelet Volume 9.0 fL (6.9-10.8) Neutrophils (%) (Auto) 76.9 % (37.0-80.0) Lymphocytes (%) (Auto) 11.1 % (10.0-50.0) Monocytes (%) (Auto) 11.8 % (0.0-12.0) Eosinophils (%) (Auto) 0.0 % (0.0-7.0) Basophils (%) (Auto) 0.2 % (0.0-2.0) Neutrophils # (Auto) 10.8 10 ^3/uL (1.6-8.6) Lymphocytes # (Auto) 1.6 10 ^3/uL (0.4-5.4) Monocytes # (Auto) 1.7 10 ^3/uL (0-1.3) Eosinophils # (Auto) 0 10 ^3/uL (0-0.8) Basophils # (Auto) 0 10 ^3/uL (0-0.2) Nucleated Red Blood Cells 0.3 % Sodium Level 134 mmol/L (136-145) Potassium Level 4.6 mmol/L (3.5-5.1) Chloride Level 105 mmol/L (98-107) Carbon Dioxide Level 19 mmol/L (20-31) Anion Gap 10 (5-15) Blood Urea Nitrogen 27 mg/dL (9-23) Creatinine 1.26 mg/dL (0.550-1.02) Glomerular Filtration Rate Calc 41 mL/min (>90) BUN/Creatinine Ratio 21.4 (10.0-20.0) Serum Glucose 116 mg/dL (74-106) Calcium Level 9.1 mg/dL (8.7-10.4) Total Bilirubin 2.0 mg/dL (0.2-1.0) Aspartate Amino Transferase (AST) 83 U/L (13-40) Alanine Aminotransferase (ALT) 37 U/L (7-40) Alkaline Phosphatase 89 U/L (46-116) Total Protein 5.6 g/dL (5.7-8.2) Albumin 3.4 g/dL (3.2-4.8) Differential Total Cells Counted 100.0 (100) Neutrophils % (Manual) 66 (37.0-80.0) Band Neutrophils % (Manual) 0 Lymphocytes % (Manual) 25 (10.0-50.0) Monocytes % (Manual) 9 (0-12) Eosinophils % (Manual) 0 (0-7) Basophils % (Manual) 0 (0.0-2.0) Metamyelocytes % (manual) 0 Myelocytes % (Manual) 0 Promyelocytes % (Manual) 0 Blast Cells % (Manual) 0 Reactive Lymphocytes 0 Platelet Estimate Decreased Hemoglobin A1c 5.9 % A1C (<5.7) Magnesium Level 2.1 mg/dL (1.6-2.6) Triglycerides Level 79 mg/dL (< 150) Cholesterol Level 134 mg/dL (< 200) LDL Cholesterol 81 mg/dL (< 100) HDL Cholesterol 45 mg/dL (40-59) Thyroid Stimulating Hormone (TSH) 1.55 uIU/mL (0.55-4.78) Troponin I High Sensitivity 60 ng/L (</=34) Prothrombin Time 13.0 sec (9.3-11.8) Prothrombin Time INR 1.25 (0.9-1.15) Activated Partial Thromboplast Time 27.3 SEC (24.5-34.5) B-Type Natriuretic Peptide 2601.43 pg/mL (0-100) Other Laboratory Tests 06/23/24 04:59 Brief Hx & Hospital Course: 88-year-old female with past medical history of AFib, CHF, [place], hypertension, and CKF who presented to [facility] ED with complaint of shortness of breaths. Patient reports symptoms progressively get worse with lower extremity edema, shortness of breaths when ambulating, on exertion, getting worse that prompted this visit. Chest x-ray revealing small bilateral pleural effusion with overlying atelectasis and/or consolidation, slightly increased compared to the prior exam; cardiomegaly and mild prominence of the pulmonary vasculature suggesting a degree of pulmonary vascular congestion in the appropriate clinical setting. Patient was started on IV Lasix. Chest tubes from outpatient continue dark aura serous fluid. lasix made patient feel worse and family again wants to return to hospice. arrangements made with hospice agency. patient stable, and ok to return back to hospice. 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 medications defered to hospice agency. patient status is returned to DNR DNI planning and visit required 35 min. 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 [place] heart Association class IV Bilateral pleural effusion s/p bilateral Pleurx catheter Compressive atelectasis Generalized weakness AFib (off eliquis) Acute kidney injury Hypertension History of [place] History of CAD status post PTCA and 3 CURT Discharge Disposition: Hospice - Home Discharge Instruct/Medications Diet: Regular Activity: Bed rest Follow Up/Referral: see below Medications: see below Discharge Statement: "Patient was advised to return to the ER or call 911 if any headaches, dizziness, shortness of breath, chest pain, abdominal pain, bleeding, fevers, or worsening of medical condition. Patient was counseled about treatment plan, medications, possible side effects, patientverbalized understanding. All questions were answered to the best of my ability. 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
--- NOTE | 2024-06-25 21:08 | DVHPN2 ---
Progress Note - Dictate Date Seen: Jun 25, 2024 Medical Necessity Reason Pt with a Central, PICC or Fol: No The following are medically ne: Sanches Catheter Reason for sanches catheter: Strict I&O Subjective Patient seen and examined at bedside. Remains on supplemental oxygen Overnight events reviewed. vital signs Vital Sign Date Time Temp Pulse Resp B/P (MAP) Pulse Ox O2 Delivery O2 Flow Rate FiO2 06/25/24 16:55 97.5 84 20 114/62 (79) 94 97.5 06/25/24 08:15 Nasal Cannula* 2 28 Total Intake and Output 06/24/24 06/24/24 06/25/24 14:59 22:59 06:59 Intake Total 580 ml 800 ml Output Total 500 ml 200 ml Balance 80 ml 600 ml objective Gen.: Patient lying in bed in no apparent distress. On supplemental oxygen. Head: Normocephalic, atraumatic. Eyes: EOMI/PERRLA. Ears: Normal hearing. Normal anatomy. Neck/trachea: Trachea midline, supple. Nose: Normal external anatomy. Mouth: Moist mucous membranes. Chest: Decreased air entry bilaterally. No wheezing or rhonchi. Cardiovascular: Positive S1, positive S2. Regular rate and rhythm. Abdomen: Positive bowel sounds in all 4 quadrants. Soft, non-tender, non- distended. : Deferred. Rectal: Deferred. Skin: Warm, dry. Intact. Extremities: 2+ radial pulses bilaterally. No lower extremity edema. Neuro: Awake, alert, oriented x3. No gross motor or sensory deficits. Cranial nerves II through XII intact. Gait not assessed. 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 Pt son insists on drip drain. Supplemental oxygen. Monitor ins/outs. Continue diuresing. Pt stable from pulmonary standpoint for discharge. Rest of plan as noted below. Plan: CXR image and report reviewed. IMPRESSION: 1. Small bilateral pleural effusions with overlying atelectasis and/or consolidation, slightly increased compared to the prior exam. Bilateral pleural catheters as described above. 2. Cardiomegaly and mild prominence of the pulmonary vasculature suggesting a degree of pulmonary vascular congestion in the appropriate clinical setting. Drain Pleurx catheter bilaterally up to 500 mL. Supplemental oxygen Keep o2 saturation above 92% IS Diurese to euvolemia On Lasix Monitor ins/outs Monitor renal function Monitor electrolytes. Supplement as necessary. DVT prophylaxis-SCDs. Prognosis: Poor given patient's multiple co-morbidities. Rest of plan per hospitalist and other consultants. A total of 56 minutes of clinical care time was spent reviewing the patient record, examining the patient, making a diagnostic and therapeutic plan, discussing this plan with the medical personnel, following up on diagnostic studies and following the patient for clinical stability excluding any and all procedures. At least 50% of this time was spent in direct, [id number] contact. Thank you Dr. Carbajal for allowing me to participate in this patient's care. Further recommendations will depend on the patient's clinical course. Please do not hesitate to contact me if you have any questions or concerns. This medical document was created using an electronic medical record system with [employer] dictation system. Although these documentations are being carefully reviewed, there may still be some phonetic and typographical changes. The errors are purely typographical, due to imperfection on the software program, and do not reflect any compromise in the patient's medical care. Plan discussed with: Son, Other (SHANNA Vera MD) LETTY RYAN MD Jun 25, 2024 21:08
== END 2024-06-25 19:02 | disposition hospice, home (50) | DRG 280 ==
LOC: ER 14:14 → EDBD 14:14 → TELE 06-22 04:45 → TELE-WESTW 06-22 18:35
PROVIDERS: ADMIT Nurse Practitioner Family; ATTEND Family Medicine
DX: I13.0 Hypertensive heart and chronic kidney disease with heart failure and stage 1 through stage 4 chronic kidney disease, or unspecified chronic kidney disease (principal); I50.43 Acute on chronic combined systolic (congestive) and diastolic (congestive) heart failure; I21.A1 Myocardial infarction type 2; J96.01 Acute respiratory failure with hypoxia; N17.9 Acute kidney failure, unspecified; I25.10 Atherosclerotic heart disease of native coronary artery without angina pectoris; N18.9 Chronic kidney disease, unspecified; I48.91 Unspecified atrial fibrillation; I34.0 Nonrheumatic mitral (valve) insufficiency; E07.9 Disorder of thyroid, unspecified; R73.03 Prediabetes; I25.2 Old myocardial infarction; Z82.49 Family history of ischemic heart disease and other diseases of the circulatory system; Z82.3 Family history of stroke; Z98.61 Coronary angioplasty status; Z51.5 Encounter for palliative care; Z91.128 Patient's intentional underdosing of medication regimen for other reason
CPT/HCPCS: 36415; 71045; 80048; 80053; 80061; 83036; 83735; 83880; 84443; 84484; 85007; 85025; 85027; 85610; 85730; 93005; 93306; 99291; G0378